=== PATIENT | male | born 1980 | race Caucasian/White ===

== ENCOUNTER 2017-01-06 10:55 | Inpatient (IN) | payer MEDICAID ==
[~2017-01-06] VITALS: Ht 182.9 cm; Wt 86.6 kg
[2017-01-06] MEDS ORDERED: ONDANSETRON (ODT) 4 MG TAB ODT STA (12:10)
[2017-01-06] MEDS ORDERED: KETOROLAC 30 MG INJ IV STA (12:10)
[2017-01-06] MEDS ORDERED: ONDANSETRON 4 MG INJ ONE (12:27)
[2017-01-06] MEDS ORDERED: KETOROLAC 30 MG INJ IM STA (12:27)
[2017-01-06 12:56] LABS: ADD SCAN DIFF NO
[2017-01-06 12:58] LABS: BASOPHILS % 0.3 % (0.0-2.0); EOSINOPHILS # 0.1 10^3/ul (0.0-0.5); EOSINOPHILS % 0.7 % (0.0-7.0); HEMATOCRIT 44.8 % (42.0-52.0); HEMOGLOBIN 15.2 g/dl (14.0-18.0); LYMPHOCYTES # 1.2 10^3/ul (0.8-2.9); LYMPHOCYTES % 12.3 % (15.0-51.0); MEAN CORPUSCULAR HEMOGLOBIN 31.5 pg (29.0-33.0); MEAN CORPUSCULAR HGB CONC 33.9 g/dl (32.0-37.0); MEAN CORPUSCULAR VOLUME 92.8 fl (82.0-101.0); MEAN PLATELET VOLUME 10.9 fl (7.4-10.4); MONOCYTE # 0.6 10^3/ul (0.3-0.9); MONOCYTES % 6.3 % (0.0-11.0); NEUTROPHIL # 7.5 10^3/ul (1.6-7.5); NEUTROPHILS % 80.1 % (39.0-77.0); PLATELET COUNT 286 10^3/UL (140-415); RED BLOOD COUNT 4.83 10^6/ul (4.70-6.10); WHITE BLOOD COUNT 9.3 10^3/ul (4.8-10.8)
[2017-01-06 13:03] LABS: ADD UMIC YES; URINE BILIRUBIN (Dip) 2+ (NEGATIVE); URINE BLOOD (Dip) TRACE (NEGATIVE); URINE COLOR DK. YELLOW (YELLOW); URINE GLUCOSE (Dip) NEGATIVE (NEGATIVE); URINE KETONES (Dip) TRACE (NEGATIVE); URINE LEUKOCYTE ESTERASE (Dip) NEGATIVE (NEGATIVE); URINE NITRITE (Dip) NEGATIVE (NEGATIVE); URINE TOTAL PROTEIN (Dip) NEGATIVE (NEGATIVE); URINE UROBILINOGEN (Dip) 1.0 E.U./dL (0.1-1.0)
[2017-01-06 13:07] LABS: ALBUMIN 4.8 g/dl (3.3-4.9); POTASSIUM 4.2 mmol/L (3.5-5.1)
[2017-01-06 13:09] LABS: CREATININE 0.95 mg/dl (0.61-1.24)
[2017-01-06 13:10] LABS: ALBUMIN/GLOBULIN RATIO 1.37; BILIRUBIN,DIRECT 0.3 mg/dl (0.00-0.20); BILIRUBIN,INDIRECT 0.7 mg/dl (0-1.1); CALCIUM 9.4 mg/dl (8.4-10.2); TOTAL PROTEIN 8.3 g/dl (6.1-8.1)
--- NOTE | 2017-01-06 13:15 | RADRPT ---
PROCEDURE: US Abdomen Right Upper Quadrant. CLINICAL INDICATION: Right upper quadrant and epigastric pain TECHNIQUE: Multiple real-time longitudinal and transverse images were acquired of the patient's [facility] upper quadrant abdomen utilizing a curved array transducer. COMPARISON: None FINDINGS: Liver: The liver is mildly enlarged of the sagittal diameter of the right lobe measuring 17.6 cm. T he liver is diffusely echogenic with no focal lesion identified. There is antegrade flow of the justin n portal vein. Gallbladder: There is cholelithiasis and some sludge within the gallbladder. The gallbladder wall i s not thickened. Bile ducts: There is no significant intra or extrahepatic bile duct dilatation. No choledocholiths a re seen within the visualized portions. The common bile duct measures 4.1 mm in cross diameter. Pancreas: The pancreas is largely obscured by bowel gas. Right adrenal : No mass is identified. Right kidney: Normal in echotexture andl in size. The right kidney measures 11.7 cm in length. No ma ss, pathological calcification, or hydronephrosis is evident. Peritoneum: There is no free intraperitoneal fluid IMPRESSION: 1. Cholelithiasis with some sludge seen in the gallbladder. The gallbladder wall is not thickened a nd no bile duct dilatation is evident. 2. The pancreas is largely obscured by bowel gas. 3. Hepatomegaly with diffusely increased echotexture compatible with fatty infiltration or less lik jeff diffuse hepatocellular disease. 4. Normal-appearing right kidney without hydronephrosis. Physician Garry Date Time Electronically viewed and signed by Physician Garry on 01/06/2017 13:14 /
[2017-01-06 13:17] LABS: ICTOTEST POSITIVE (NEGATIVE)
[2017-01-06 13:19] LABS: MUCUS,URINE MANY; SQUAMOUS EPITHELIAL CELL,UR FEW; URINE RBCS 0-2 /HPF (0)
[2017-01-06 14:23] VITALS: TEMP 98.6
[2017-01-06] MEDS ORDERED: FAMOTIDINE 20 MG INJ ONE (14:29)
[2017-01-06] MEDS ORDERED: FAMOTIDINE 20 MG TAB PO ONE (14:30)
[2017-01-06] MEDS ORDERED: ACETAMINOPHEN 325 MG TAB PO PRN ×2 (14:30→22:00)
[2017-01-06] MEDS ORDERED: ONDANSETRON 4 MG INJ IV PRN ×2 (14:30→16:00)
[2017-01-06] MEDS ORDERED: FAMOTIDINE 20 MG INJ IV ONE (15:00)
[2017-01-06] MEDS ORDERED: hydrALAzine 20 MG INJ IV PRN (16:00)
[2017-01-06] MEDS ORDERED: IBUPROFEN 600 MG TAB PO PRN (16:00)
[2017-01-06] MEDS ORDERED: BISACODYL (EC) 5 MG TAB PO PRN (16:00)
[2017-01-06] MEDS ORDERED: CEFTRIAXONE 1 GM/50 ML (PMX) 50 ML IVPB SCH (16:00)
[2017-01-06] MEDS ORDERED: NACL 0.9% 3 ML SYG IV SCH (16:00)
[2017-01-06] MEDS ORDERED: MAGNESIUM HYDROXIDE 30ML CUP PO PRN (16:00)
--- NOTE | 2017-01-06 16:49 | HP ---
DATE OF ADMISSION: 01/06/2017 REASON FOR ADMISSION: Abdominal pain. CONSULTANTS: Teo Maurice MD, general surgery. HISTORY OF PRESENT ILLNESS: This is 36-year-old male patient with a past medical history of dyslipidemia and recently diagnosed cholelithiasis, who came to the emergency room with chief complaint of abdominal pain and multiple episodes of nonbilious, nonbloody vomiting. As per the patient, he went to the ER at [facility] on 01/02/2017, when he had a CT scan done and he was told that he has gallstones. At that time, the patient was discharged home on some tramadol and Pepcid. The patient continued to have abdominal pain and worsening symptoms. Hence, the patient went to a local clinic on 01/06/2017 and the patient was referred to the ER for further evaluation. The patient complained of severe abdominal pain that was precipitated by food. The patient was also complaining of generalized icterus as well as pruritus. The patient also verbalized yellowish discoloration of the urine. The patient denied any diarrhea. The patient has not had any bowel movement for the past 2 days. The patient denied any fevers. He was complaining of headache and malaise. The patient verbalized that he has been taking gemfibrozil for his dyslipidemia. In the emergency room at [facility], the patient was found to be afebrile. The patient was noticed to have transaminitis with AST of 315 and ALT of 549 with a normal alkaline phosphatase and minimal direct bilirubinemia. The patient had no leukocytosis. The patient underwent a gallbladder ultrasound in the emergency room that showed cholelithiasis with some sludge seen in the gallbladder with no gallbladder wall thickening and no bile duct dilatation. The ultrasound also revealed hepatomegaly with diffusely increased echotexture compatible with fatty infiltration; however, less likely diffuse hepatocellular disease. The patient was treated with IV analgesics and IV histamine 2 receptor blockers in the emergency room. PAST MEDICAL HISTORY: Dyslipidemia, recently diagnosed cholelithiasis. PAST SURGICAL HISTORY: Denies. HOME MEDICATIONS: Fenofibrate, unknown dose daily. ALLERGIES: NO KNOWN DRUG ALLERGIES. SOCIAL HISTORY: The patient lives at home. Current daily tobacco use. Denies any use of alcohol or illicit drugs. REVIEW OF SYSTEMS: A 12-point review of systems was made and review of systems was negative other than what is mentioned in history of present illness. PHYSICAL EXAMINATION: VITAL SIGNS: Temperature 98.6, pulse rate 54, respiratory rate 17, blood pressure 147/97, oxygen saturation 100% on room air. HEENT: Head normocephalic and atraumatic. Eyes: Anicteric sclerae. Conjunctivae clear. ENT: Nasal septum is midline. Oral mucosa is dry. NECK: Supple. No JVD noticed. RESPIRATORY: Bilaterally clear to auscultation. No adventitious breath sounds heard. No use of accessory muscles of respiration. CARDIAC: Regular rate and rhythm. No murmurs heard. GASTROINTESTINAL: Abdomen soft, nontender. Bowel sounds hypoactive in all 4 quadrants. GENITOURINARY: Deferred. EXTREMITIES: No cyanosis, no clubbing, no edema. Peripheral pulses are palpable. NEUROLOGIC: The patient is awake, alert and oriented. Cranial nerves are grossly intact. LABORATORY AND DIAGNOSTIC DATA: WBC 9.3, hemoglobin 15.1, hematocrit 44.8, platelet count 286. Sodium 144, potassium 4.2, chloride 99, carbon dioxide 29, anion gap 20, BUN 14, creatinine 0.95, glucose 97, calcium 9.4. Total bilirubin 1.0, direct bilirubin 0.3, indirect bilirubin 0.7, AST 315, AST 569, alkaline phosphatase 124, albumin 4.8, lipase 40. Urinalysis: Urine nitrite negative, urine leukocyte esterase negative, urine bilirubin 2+, urine microscopic WBC 0 to 2. Gallbladder ultrasound. Cholelithiasis with some sludge in the gallbladder. The gallbladder wall is not thickened and no bile duct dilatation is evident. The pancreas was largely obscured by bowel gas. Hepatomegaly with diffuse increased echotexture compatible with fatty infiltration; however, less likely diffuse hepatocellular disease. Normal appearing right kidney without hydronephrosis. IMPRESSION: A 36-year-old male with recently diagnosed cholelithiasis, who came to the emergency room with symptomatic cholelithiasis with evidence of transaminitis. He will be admitted here for further treatment and evaluation. ASSESSMENT AND PLAN: 1. Symptomatic cholelithiasis. General surgery consult will be obtained. The patient will be provided with adequate pain control. The patient will be started on empiric antibiotics. The patient will be maintained on a clear liquid diet if the patient can tolerate it. 2. Dyslipidemia. Fasting lipid panel will be obtained. The patient was taking gemfibrozil at home. This will be put on hold at this time. 3. Transaminitis. Most probably secondary to #1. We will monitor the liver function tests closely. We will avoid any hepatotoxic medications 4. Tobacco use. The patient will be advised to quit the use of tobacco. The patient will be provided with a nicotine patch in case he develops any withdrawal from nicotine. Plan. The patient will be admitted to inpatient medical/surgical floor. The patient will be started on DVT prophylaxis and gastrointestinal prophylaxis. The patient will be started on a clear liquid diet. Activities will be as tolerated. The patient will remain a FULL CODE. The rest of the patient's management will be based on the clinical course, the results of diagnostic studies and inputs from the consultants. Based on the patient's clinical presentation, he most probably requires at least 2 midnights' stay for further management and evaluation of his clinical presentation. The case and management of this patient was fully discussed with Dr. Wisdom. ELFEGO WISDOM MD, AM/ALBERTO Conf#: [id number] DID#: [id number] MTDD
[2017-01-06 17:02] LABS: BARBITURATES NEGATIVE (NEGATIVE); BENZODIAZEPINES NEGATIVE (NEGATIVE); CANNABINOIDS NEGATIVE (NEGATIVE); COCAINE NEGATIVE (NEGATIVE); OPIATES NEGATIVE (NEGATIVE)
[2017-01-06 18:40] VITALS: BP 128/84; RESP 22
[2017-01-06] MEDS: DEXTROSE 5%-0.45% NACL 1,000 ML IV SCH ×3 (19:02→19:10)
[2017-01-06 19:45] VITALS: Ht 182.9 cm; Wt 86.6 kg
[2017-01-06 20:00] VITALS: BP 110/63; RESP 16
[2017-01-06] MEDS: FAMOTIDINE 20 MG INJ IV SCH (20:11)
[2017-01-07] MEDS: DEXTROSE 5%-0.45% NACL 1,000 ML IV SCH ×4 (01:39→15:26)
[2017-01-07 06:24] LABS: ADD SCAN DIFF NO
[2017-01-07 06:27] LABS: BASOPHILS % 0.4 % (0.0-2.0); EOSINOPHILS # 0.2 10^3/ul (0.0-0.5); EOSINOPHILS % 2.6 % (0.0-7.0); HEMATOCRIT 41.1 % (42.0-52.0); HEMOGLOBIN 13.8 g/dl (14.0-18.0); LYMPHOCYTES # 1.9 10^3/ul (0.8-2.9); LYMPHOCYTES % 27.6 % (15.0-51.0); MEAN CORPUSCULAR HEMOGLOBIN 31.2 pg (29.0-33.0); MEAN CORPUSCULAR HGB CONC 33.6 g/dl (32.0-37.0); MEAN PLATELET VOLUME 10.9 fl (7.4-10.4); MONOCYTE # 0.6 10^3/ul (0.3-0.9); MONOCYTES % 9.2 % (0.0-11.0); NEUTROPHIL # 4.1 10^3/ul (1.6-7.5); NEUTROPHILS % 59.9 % (39.0-77.0); PLATELET COUNT 240 10^3/UL (140-415); RED BLOOD COUNT 4.42 10^6/ul (4.70-6.10); WHITE BLOOD COUNT 6.8 10^3/ul (4.8-10.8)
[2017-01-07 06:37] LABS: INR 1.08; PT RATIO 1.1
[2017-01-07 06:38] LABS: PARTIAL THROMBOPLASTIN TIME 31.3 Sec (25.0-35.0)
[2017-01-07 06:45] LABS: POTASSIUM 4.8 mmol/L (3.5-5.1)
[2017-01-07 06:47] LABS: BILIRUBIN,DIRECT 0.2 mg/dl (0.00-0.20); BILIRUBIN,INDIRECT 0.6 mg/dl (0-1.1); BILIRUBIN,TOTAL 0.8 mg/dl (0.2-1.3)
[2017-01-07 06:48] LABS: ALBUMIN/GLOBULIN RATIO 1.37; CALCIUM 8.9 mg/dl (8.4-10.2); TOTAL PROTEIN 6.9 g/dl (6.1-8.1)
[2017-01-07 06:59] LABS: CREATININE 0.99 mg/dl (0.61-1.24)
[2017-01-07 07:03] LABS: PHOSPHORUS 3.7 mg/dl (2.5-4.9)
[2017-01-07 07:04] LABS: CHOL/HDL RATIO 3.3 RATIO; MAGNESIUM 1.8 mg/dl (1.7-2.5)
[2017-01-07 07:57] VITALS: BP 119/70; RESP 20
[2017-01-07] MEDS: FAMOTIDINE 20 MG INJ IV SCH ×3 (08:45→20:28)
--- NOTE | 2017-01-07 16:01 | PN ---
Date/Time of Note Date/Time of Note DATE: 01/07/17 TIME: 16:00 Assessment/Plan VTE Prophylaxis VTE Prophylaxis Intervention: SCD's Lines/Catheters IV Catheter Type (from Nrs): Peripheral IV Assessment/Plan Assessment/Plan 1. Symptomatic cholelithiasis. General surgery consult will be obtained. The patient will be provided with adequate pain control. The patient was started on empiric antibiotics. The patient will be maintained on a clear liquid diet if the patient can tolerate it. 2. Dyslipidemia. Fasting lipid panel will be obtained. The patient was taking gemfibrozil at home. This will be put on hold at this time. 3. Transaminitis. Most probably secondary to #1. We will monitor the liver function tests closely. We will avoid any hepatotoxic medications 4. Tobacco use. The patient will be advised to quit the use of tobacco. The patient will be provided with a nicotine patch in case he develops any withdrawal from nicotine. maalox, Pepcid, IVF, pain control Subjective 24 Hr Interval Summary Free Text/Dictation c/o epigastric pain after food, BP stable, c/o heartburn Exam/Review of Systems Vital Signs Vitals Vital Signs Date Time Temp Pulse Resp B/P Pulse Ox O2 Delivery O2 Flow Rate FiO2 01/07/17 07:57 97.9 62 20 119/70 0 01/06/17 14:23 Room Air Intake and Output 01/06/17 01/06/17 01/07/17 15:00 23:00 07:00 Intake Total 50 ml 1000 ml Balance 50 ml 1000 ml Exam HEENT: Head normocephalic and atraumatic. Eyes: Anicteric sclerae. Conjunctivae clear. ENT: Nasal septum is midline. Oral mucosa is dry. NECK: Supple. No JVD noticed. RESPIRATORY: Bilaterally clear to auscultation. No adventitious breath sounds heard. No use of accessory muscles of respiration. CARDIAC: Regular rate and rhythm. No murmurs heard. GASTROINTESTINAL: Abdomen soft, nontender. Bowel sounds hypoactive in all 4 quadrants. GENITOURINARY: Deferred. EXTREMITIES: No cyanosis, no clubbing, no edema. Peripheral pulses are palpable. NEUROLOGIC: The patient is awake, alert and oriented. Cranial nerves are grossly intact. Results Result Diagram: 01/07/17 0601/07/17 06 Results 24 hrs Laboratory Tests Test 3/22/17 06:04 White Blood Count 6.8 # Red Blood Count 4.42 L Hemoglobin 13.8 L Hematocrit 41.1 L Mean Corpuscular Volume 93.0 Mean Corpuscular Hemoglobin 31.2 Mean Corpuscular Hemoglobin Concent 33.6 Red Cell Distribution Width 13.0 Platelet Count 240 Mean Platelet Volume 10.9 H Neutrophils % 59.9 Lymphocytes % 27.6 Monocytes % 9.2 Eosinophils % 2.6 Basophils % 0.4 Nucleated Red Blood Cells % 0.0 Neutrophils # 4.1 Lymphocytes # 1.9 Monocytes # 0.6 Eosinophils # 0.2 Basophils # 0.0 Nucleated Red Blood Cells # 0.0 Prothrombin Time 14.0 Prothrombin Time Ratio 1.1 INR International Normalized Ratio 1.08 Activated Partial Thromboplast Time 31.3 Sodium Level 145 H Potassium Level 4.8 Chloride Level 104 Carbon Dioxide Level 30 Anion Gap 16 Blood Urea Nitrogen 12 Creatinine 0.99 Glucose Level 93 Calcium Level 8.9 Phosphorus Level 3.7 Magnesium Level 1.8 Total Bilirubin 0.8 Direct Bilirubin 0.20 Indirect Bilirubin 0.6 Aspartate Amino Transf (AST/SGOT) 179 H Alanine Aminotransferase (ALT/SGPT) 414 H Alkaline Phosphatase 108 Total Protein 6.9 # Albumin 4.0 Globulin 2.90 Albumin/Globulin Ratio 1.37 Triglycerides Level 201 H Cholesterol Level 157 LDL Cholesterol, Calculated 70 HDL Cholesterol 47 Cholesterol/HDL Ratio 3.3 Medications Medications Current Medications Dextrose/Sodium Chloride (D5-1/2ns) 1,000 ml @ 100 mls/hr Q10H IV Last administered on 01/07/17 15:26; Admin Dose 100 MLS/HR; Start 01/06/17 at 15:39 Ondansetron HCl (Zofran Inj) 4 mg Q6H PRN IV NAUSEA AND/OR VOMITING Last administered on 01/06/17 18:40; Admin Dose 4 MG; Start 01/06/17 at 16:00 Ibuprofen (Motrin) 600 mg Q6H PRN PO PAIN LEVEL 1-3 Last administered on 21:15; Admin Dose 600 MG; Start 01/06/17 at 16:00 Morphine Sulfate (morphine) 2 mg Q4H PRN IV SEVERE PAIN LEVEL 7-10; Start 01/06 at 16:00 Magnesium Hydroxide (Milk Of Mag) 30 ml DAILY PRN PO CONSTIPATION; Start at 16:00 Bisacodyl (Dulcolax) 5 mg DAILY PRN PO CONSTIPATION; Start 01/06/17 at 16:00 Famotidine (Pepcid Iv) 20 mg Q12 IV Last administered on 01/07/17t 15:24; Admin Dose 20 MG; Start 01/06/17 at 21:00 Hydralazine HCl (Apresoline) 10 mg Q6H PRN IV SBP>160; Start 01/06/17 at 16:00 Acetaminophen 650 mg 650 mg Q6H PRN PO PAIN AND OR ELEVATED TEMP; Start at 22:00 Ceftriaxone Sodium (Rocephin) 50 ml @ 100 mls/hr Q24H IVPB ; Start 01/07/17 at 20:00 Influenza Virus Vaccine (Fluzone) 0.5 ml ONCE ONCE IM* ; Start 01/08/17 at 09:00 ; Stop 01/08/17 at 09:01 RAMONITA SPAULDING MD Jan 07, 2017 16:01
[2017-01-07] MEDS ORDERED: AL HYDROX/MG HYDROX/SIMETH 30 ML CUP PO PRN (16:30)
[2017-01-07] MEDS ORDERED: AL HYDROX/MG HYDROX/SIMETH 30 ML CUP PO ONE (16:30)
[2017-01-07] MEDS: morphine 2 MG INJ IV PRN ×2 (16:56→22:16)
[2017-01-07 18:34] LABS: HAAIG REFLEX REFLEX FILED
--- NOTE | 2017-01-07 18:34 | CONS ---
[facility] INITIAL INPATIENT CONSULTATION NOTE PLACE OF SERVICE: [facility], 6th floor. DATE OF CONSULTATION: 01/07/2017 ASSESSMENT AND PLAN: A very pleasant and otherwise fairly healthy 36-year-old young man with comorbidity of hyperlipidemia and known cholelithiasis who is presenting with abdominal pain which could be from his gallbladder but could also be from gastritis. The history is significant for alleviation of all symptoms with proton pump inhibition. The other interesting factor is the description of jaundice and the fact that there is 2+ bilirubin in the urine indicating possible hepatitis. Overall, the patient can benefit from further workup including a gastroenterology evaluation and hepatitis testing. If the workup is negative, then I would recommend a laparoscopic cholecystectomy. I explained all of this to the patient and family in detail and answered all their questions to the best of my ability. I believe that the patient and family appeared to understand and agreed with the plan. With above assessment I recommended the followin. Consider gastroenterology consultation with consideration for upper endoscopy as well as evaluation of possible hepatitis. 2. Check hepatitis panels. 3. HIDA scan. 4. If above indicates it, then a laparoscopic cholecystectomy towards the end of this admission. Thank you again for allowing us to participate in the care of this very pleasant gentleman and his wonderful family. If there are any questions, please feel free to call me at [phone]. TOTAL VISIT TIME: 45 minutes of which more than half was spent in [id number] discussion with the patient, discussions with his family, as well as coordination of care between multiple physicians and providers. UPDATED CLINICAL SUMMARY: A very pleasant 36-year-old gentleman with comorbid issue of BMI 25.9 as well as dyslipidemia admitted through the emergency department at [facility] on 01/06/2017 for symptomatic biliary colic. COMORBIDITIES: 1. BMI 25.9. 2. Hyperlipidemia. 3. Cholelithiasis. 4. Gastritis. DATE OF ADMISSION: 01/06/2017 HISTORY OF PRESENT ILLNESS: The patient is a very pleasant 36-year-old gentleman whom we were kindly asked to consult regarding management of his possible biliary colic. This is his third hospital admission over the last 2 weeks. He was seen at [facility] on 01/02/2017 when a CAT scan was performed and he was told that he has cholelithiasis. He also describes a visit to [facility] where he was told he would need a cholecystectomy, but this would be done in many weeks. Interestingly, he also was treated with omeprazole a few months ago and he had complete resolution of his symptoms at that time. No other major previous issues with his biliary system. The patient and family describe a period in the last few days where he appeared to be jaundiced and had darkened urine. Currently no complaints after being medicated. ALLERGIES: NO KNOWN DRUG ALLERGIES. MEDICATIONS: Fenofibrate. SOCIAL HISTORY: The patient lives at home. He reports daily tobacco use and does not report any alcohol abuse or intravenous drug use. FAMILY HISTORY: No major medical, surgical or oncologic problems reported in the family. REVIEW OF SYSTEMS: Other than the above-mentioned, there are no other pertinent positives or pertinent negatives in the complete 14-point review of systems. PHYSICAL EXAMINATION: GENERAL: The patient appears to be a very pleasant gentleman of [place] descent appearing stated age, lying in bed comfortably and in no acute distress. BMI is 25.9. He is afebrile and his vital signs are stable. HEENT: Normocephalic and atraumatic. Extraocular muscles and hearing are grossly intact bilaterally and symmetrically. Sclerae are nonicteric. Oral cavity is clear; oral mucosa appeared to be pink and moist. Dentition: fair. NECK: Supple. There is no lymphadenopathy or JVD. There is no submental, submandibular or supraclavicular lymphadenopathy. CHEST: Rises symmetrically with each breath; patient is breathing comfortably. There are no audible wheezes, rales or rhonchi on the gross exam. HEART: Pulse is regular and palpable on the left wrist. Capillary refill was normal. Carotid pulses are palpable bilaterally and symmetrically in the neck. EXTREMITIES: Lower extremities contain no pitting edema around the ankles bilaterally and symmetrically. ABDOMEN: Abdomen is soft, nontender and nondistended. There are no peritoneal signs or guarding. No evidence of ascites, organomegaly, caput medusae, engorged subcutaneous veins, or other abnormalities. SKIN: Appears to be pink and feels warm to touch. NEUROLOGIC: Awake, alert, and follows commands appropriately. LABORATORY DATA: White blood cell count 6.8, hemoglobin 13.8, platelets 240. Electrolytes are fairly normal with sodium of 145. Creatinine 0.99. Bilirubin 0.8, AST 179, ALT 414, alkaline phosphatase 108, albumin 4.0, triglycerides 201. INR 1.08. Urine bilirubin was 2+, urine Ictotest was positive, leukocyte esterase was negative. Tox screen was negative. IMAGING: The patient had an ultrasound of the right upper quadrant that showed cholelithiasis with some sludge seen in the gallbladder but the gallbladder wall was not thickened and bile duct was not dilated. Hepatomegaly was noted with diffusely increased echotexture compatible with fatty infiltration or less likely diffuse hepatocellular disease. Note that I personally reviewed these images and I agree in general with their overall reported findings although the gallbladder wall to me appears to be slightly more thickened than normal. Dictated By: VERONICA SCHNEIDER/ALBERTO Conf#: [id number] DID#: [id number] MTDD
[2017-01-07 19:49] LABS: HEPATITIS B CORE ANTIBODY NEGATIVE (NEGATIVE)
[2017-01-07] MEDS: CEFTRIAXONE 1 GM/50 ML (PMX) 50 ML IVPB SCH (20:28)
[2017-01-07 20:53] VITALS: BP 135/79; RESP 18
[2017-01-08] MEDS: DEXTROSE 5%-0.45% NACL 1,000 ML IV SCH ×4 (01:17→16:39)
[2017-01-08 07:39] VITALS: BP 110/66; RESP 18
[2017-01-08] MEDS: FAMOTIDINE 20 MG INJ IV SCH ×2 (08:55→20:49)
[2017-01-08] MEDS ORDERED: INFLUENZA VIRUS VACCINE 0.5 ML (DISPENSING) IM* ONE (09:00)
--- NOTE | 2017-01-08 13:59 | RADRPT ---
PROCEDURE: HIDA scan CLINICAL INDICATION: 36 -year-old patient with abdominal pain. TECHNIQUE: Following the intravenous injection of 8.0 mCi of Tc-99m mebrofenin, multiple images of the abdomen were obtained up to 3.5 hours post injection. COMPARISON: No prior studies. FINDINGS: The liver is promptly visualized, demonstrates homogeneous distribution of radionuclide. Multiple images of the abdomen obtained up to 3.5 hours post injection demonstrate a persistent live r activity and no definite evidence of biliary clearance of uptake. IMPRESSION: Persistent liver activity and no definite evidence of biliary clearance of uptake up to 3.[address] injection. RPTAT: HH .Melissa Fisher MD, MD Date Time Electronically viewed and signed by .Melissa Fisher MD, on 01/08/2017 13:58 .L/
--- NOTE | 2017-01-08 15:17 | CONS ---
Date/Time of Note Date/Time of Note DATE: 01/08/17 TIME: 14:58 Assessment/Plan Assessment/Plan Additional Assessment/Plan Abdominal pain/nausea/vomiting Evaluate GI bleed versus PUD Stool OB, if positive strongly recommend EGD Monitor H&H every 8 hours, transfuse 2 units for hemoglobin less than 7.5 Continue PPI twice daily EGD if clinically indicated, pt advised of R/B/A to procedure and provide informed consent to proceed IVF Hydration Nausea and pain control Abdominal ultrasound: Transaminitis Likely secondary to cholecystitis Monitor LFTs Acute hepatitis panel, B and C negative. Hep A test in process Cholecystitis Surgery managing Possible IP cholecystectomy tomorrow Rule out choledocholithiasis, abdominal ultrasound negative for CBD dilation Lipase within normal limits High cholesterol Management per Primary Continue home medication Further recommendations depend on clinical course Patient seen in collaboration with Dr. Carlisle Consultation Date/Type/Reason Admit Date/Time Jan 06, 2017 at 14:23 Type of Consultation: Gastroenterology Reason for Consultation Abdominal pain Hx of Present Illness Mr.Ramin Jimenez is a 36-year-old male that presents with worsening abdominal pain, nausea, vomiting for last 2 weeks. Patient states prior to this episode he has been experiencing chronic abdominal pain with intermittent nausea and vomiting for several years. Patient states pain is worse after eating. Patient reports burning epigastric pain after eating and he uses over-the- counter Zantac for relief of symptoms. Patient denies fever, chills, travel outside the [place], sick contacts, alcohol use. Patient does have a past medical history of dyslipidemia that is treated with fenofibrate. Past Medical History Medical History: high cholesterol Past Surgical History Past Surgical Hx: no surgical history Family History Significant Family History: no pertinent family hx Social History Smoking Status: Current every day smoker Exam/Review of Systems Vital Signs Vitals Vital Signs Date Time Temp Pulse Resp B/P Pulse Ox O2 Delivery O2 Flow Rate FiO2 01/08/17 07:39 97.5 66 18 110/66 98 01/06/17 14:23 Room Air Intake and Output 01/07/17 01/07/17 01/08/17 15:00 23:00 07:00 Intake Total 2070 ml 1100 ml Balance 2070 ml 1100 ml Exam Constitutional: alert, oriented, well developed Psych: nl mood/affect Head: normocephalic Eyes: EOMI, nl conjunctiva, nl lids ENMT: nl external ears & nose, nl lips & teeth, nl nasal mucosa & septum Respiratory: clear to auscultation, normal air movement Cardiovascular: regular rate and rhythm Gastrointestinal: soft, epigastric tenderness Musculoskeletal: nl extremities to inspection 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 Results Result Diagram: 01/07/17 0604 01/07/17 0604 Results 24 hrs Laboratory Tests Test 01/07/17 18:25 Hepatitis B Surface Antigen NEGATIVE Hepatitis B Core Total Antibody NEGATIVE Hepatitis C Antibody NEGATIVE Medications Medications Current Medications Dextrose/Sodium Chloride (D5-1/2ns) 1,000 ml @ 100 mls/hr Q10H IV Last administered on 01/08/17 14:03; Admin Dose 100 MLS/HR; Start 01/06/17 at 15:39 Ondansetron HCl (Zofran Inj) 4 mg Q6H PRN IV NAUSEA AND/OR VOMITING Last administered on 01/06/17 18:40; Admin Dose 4 MG; Start 01/06/17 at 16:00 Ibuprofen (Motrin) 600 mg Q6H PRN PO PAIN LEVEL 1-3 Last administered on 21:15; Admin Dose 600 MG; Start 01/06/17 at 16:00 Morphine Sulfate (morphine) 2 mg Q4H PRN IV SEVERE PAIN LEVEL 7-10 Last administered on 01/07/17 22:16; Admin Dose 2 MG; Start 01/06/17 at 16:00 Magnesium Hydroxide (Milk Of Mag) 30 ml DAILY PRN PO CONSTIPATION; Start at 16:00 Bisacodyl (Dulcolax) 5 mg DAILY PRN PO CONSTIPATION; Start 01/06/17 at 16:00 Famotidine (Pepcid Iv) 20 mg Q12 IV Last administered on 01/08/17 08:55; Admin Dose 20 MG; Start 01/06/17 at 21:00 Hydralazine HCl (Apresoline) 10 mg Q6H PRN IV SBP>160; Start 01/06/17 at 16:00 Acetaminophen 650 mg 650 mg Q6H PRN PO PAIN AND OR ELEVATED TEMP; Start at 22:00 Ceftriaxone Sodium (Rocephin) 50 ml @ 100 mls/hr Q24H IVPB Last administered on 3/22/17at 20:28; Admin Dose 100 MLS/HR; Start 01/07/17 at 20:00 Al Hydrox/Mg Hydrox/Simethicone (Mag-Al Plus) 30 ml Q4H PRN PO GASTROINTESTINAL UPSET; Start 01/07/17 at 16:30 ROSARIO MACIAS Jan 08, 2017 15:08
[2017-01-08 16:40] LABS: ALANINE AMINOTRANSFERASE 717 IU/L (13-69); ASPARTATE AMINO TRANSFERASE 516 IU/L (15-46)
--- NOTE | 2017-01-08 18:48 | PN ---
Date/Time of Note Date/Time of Note DATE: 01/08/17 TIME: 18:46 Assessment/Plan VTE Prophylaxis VTE Prophylaxis Intervention: SCD's Lines/Catheters IV Catheter Type (from Nrsg): Peripheral IV Urinary Cath still in place: No Assessment/Plan Assessment/Plan 1. Symptomatic cholelithiasis. s/p general surgery consult, GI consulted for EGD 2. Dyslipidemia. 3. Transaminitis acute 4. Tobacco use. counselled for smoking cessation maalox, Pepcid, IVF, pain control, SCD for DVT prophylaxis Subjective 24 Hr Interval Summary Free Text/Dictation LFTs still high,c/o abd pain, GI consulted to see pt Exam/Review of Systems Vital Signs Vitals Vital Signs Date Time Temp Pulse Resp B/P Pulse Ox O2 Delivery O2 Flow Rate FiO2 01/08/17 07:39 97.5 66 18 110/66 98 01/06/17 14:23 Room Air Intake and Output 01/07/17 01/07/17 01/08/17 15:00 23:00 07:00 Intake Total 2070 ml 1100 ml Balance 2070 ml 1100 ml Results Result Diagram: 01/07/17 0604 01/07/17 0604 Results 24 hrs Laboratory Tests Test 01/08/17 15:45 Aspartate Amino Transf (AST/SGOT) 516 #H Alanine Aminotransferase (ALT/SGPT) 717 H Medications Medications Current Medications Dextrose/Sodium Chloride (D5-1/2ns) 1,000 ml @ 100 mls/hr Q10H IV Last administered on 01/08/17 14:03; Admin Dose 100 MLS/HR; Start 01/06/17 at 15:39 Ondansetron HCl (Zofran Inj) 4 mg Q6H PRN IV NAUSEA AND/OR VOMITING Last administered on 01/06/17 18:40; Admin Dose 4 MG; Start 01/06/17 at 16:00 Ibuprofen (Motrin) 600 mg Q6H PRN PO PAIN LEVEL 1-3 Last administered on 21:15; Admin Dose 600 MG; Start 01/06/17 at 16:00 Morphine Sulfate (morphine) 2 mg Q4H PRN IV SEVERE PAIN LEVEL 7-10 Last administered on 01/07/17 22:16; Admin Dose 2 MG; Start 01/06/17 at 16:00 Magnesium Hydroxide (Milk Of Mag) 30 ml DAILY PRN PO CONSTIPATION; Start at 16:00 Bisacodyl (Dulcolax) 5 mg DAILY PRN PO CONSTIPATION; Start 01/06/17 at 16:00 Famotidine (Pepcid Iv) 20 mg Q12 IV Last administered on 01/08/17 08:55; Admin Dose 20 MG; Start 01/06/17 at 21:00 Hydralazine HCl (Apresoline) 10 mg Q6H PRN IV SBP>160; Start 01/06/17 at 16:00 Acetaminophen 650 mg 650 mg Q6H PRN PO PAIN AND OR ELEVATED TEMP; Start at 22:00 Ceftriaxone Sodium (Rocephin) 50 ml @ 100 mls/hr Q24H IVPB Last administered on 01/07/17 20:28; Admin Dose 100 MLS/HR; Start 01/07/17 at 20:00 Al Hydrox/Mg Hydrox/Simethicone (Mag-Al Plus) 30 ml Q4H PRN PO GASTROINTESTINAL UPSET; Start 01/07/17 at 16:30 RAMONITA SPAULDING MD Jan 08, 2017 18:48
[2017-01-08 20:22] VITALS: BP 130/68; RESP 16
[2017-01-08] MEDS: CEFTRIAXONE 1 GM/50 ML (PMX) 50 ML IVPB SCH (20:49)
--- NOTE | 2017-01-08 23:05 | RADRPT ---
PROCEDURE: MRCP. CLINICAL INDICATION: Biliary colic. Elevated liver function tests. Evaluate for choledocholithia sis. TECHNIQUE: MRCP was performed on a high field MRI scanner. Patient was examined without contrast. 3-D coronal rotating MIP images of the biliary tree are available for review. COMPARISON: HIDA 01/08/2017. Gallbladder ultrasound 01/06/2017. FINDINGS: The gallbladder is not distended. Stones layer dependently within the gallbladder lumen. There is no gallbladder wall thickening or pericholecystic edema. The common bile duct measures approximatel y 6-7 mm in greatest diameter. There are no discrete internal signal voids to suggest the presence of choledocholithiasis. There is no pancreatic duct dilatation. The liver is homogeneous in signal intensity and measures approximately 19.0 cm in a craniocaudal di mension. The spleen is homogeneous in signal intensity and measures approximately 10.0 cm in a cran iocaudal dimension. The pancreas is homogeneous in signal intensity. There is no peripancreatic ed [place]. The adrenal glands and kidneys are unremarkable. There is no hydronephrosis or perinephric edema. The abdominal aorta is normal in caliber. There is no periaortic / retroperitoneal lymphadenopathy. The stomach is collapsed. The visualized portions of the small large intestines are unremarkable. There are no bone marrow signal abnormalities. Body wall soft tissues are unremarkable. IMPRESSION: Cholelithiasis without evidence of acute cholecystitis. Minimal mild common bile duct dilatation without evidence of choledocholithiasis. Hepatomegaly. RPTAT: HLST .Faye Wolfe MD, Date Time Electronically viewed and signed by .Faye Wolfe MD, on 01/08/2017 23:05 .T/
[2017-01-09] MEDS: DEXTROSE 5%-0.45% NACL 1,000 ML IV SCH ×2 (02:44→13:10)
[2017-01-09 05:29] LABS: ADD SCAN DIFF NO
[2017-01-09 05:45] LABS: BASOPHILS % 0.4 % (0.0-2.0); EOSINOPHILS # 0.3 10^3/ul (0.0-0.5); EOSINOPHILS % 3.6 % (0.0-7.0); HEMATOCRIT 39.5 % (42.0-52.0); HEMOGLOBIN 13.6 g/dl (14.0-18.0); MEAN CORPUSCULAR HEMOGLOBIN 31.6 pg (29.0-33.0); MEAN CORPUSCULAR HGB CONC 34.4 g/dl (32.0-37.0); MEAN CORPUSCULAR VOLUME 91.9 fl (82.0-101.0); MEAN PLATELET VOLUME 11.3 fl (7.4-10.4); MONOCYTE # 0.7 10^3/ul (0.3-0.9); MONOCYTES % 10.1 % (0.0-11.0); NEUTROPHIL # 3.9 10^3/ul (1.6-7.5); NEUTROPHILS % 56.6 % (39.0-77.0); PLATELET COUNT 238 10^3/UL (140-415); RED CELL DISTRIBUTION WIDTH 12.9 % (11.5-14.5); WHITE BLOOD COUNT 6.9 10^3/ul (4.8-10.8)
[2017-01-09 05:57] LABS: INR 1.01; PROTIME 13.3 Sec (12.2-14.2)
[2017-01-09 05:58] LABS: PARTIAL THROMBOPLASTIN TIME 31.5 Sec (25.0-35.0)
[2017-01-09 06:12] LABS: ALBUMIN 3.9 g/dl (3.3-4.9)
[2017-01-09 06:13] LABS: POTASSIUM 3.9 mmol/L (3.5-5.1)
[2017-01-09 06:15] LABS: ALBUMIN/GLOBULIN RATIO 1.44; BILIRUBIN,INDIRECT 0.7 mg/dl (0-1.1); BILIRUBIN,TOTAL 0.7 mg/dl (0.2-1.3); CREATININE 0.91 mg/dl (0.61-1.24); TOTAL PROTEIN 6.6 g/dl (6.1-8.1)
[2017-01-09 06:16] LABS: CALCIUM 9.2 mg/dl (8.4-10.2)
[2017-01-09] MEDS ORDERED: CEFAZOLIN 1 GM INJ ONE (07:00)
[2017-01-09] MEDS ORDERED: GLYCOPYRROLATE 1 MG INJ ONE (07:00)
[2017-01-09] MEDS ORDERED: NEOSTIGMINE 3 MG/3 ML SYRINGE ONE (07:00)
[2017-01-09 08:13] VITALS: BP 111/78; RESP 18
[2017-01-09] MEDS: FAMOTIDINE 20 MG INJ IV SCH ×2 (08:50→21:08)
--- NOTE | 2017-01-09 12:31 | PN ---
Date/Time of Note Date/Time of Note DATE: 01/09/17 TIME: 12:29 Assessment/Plan VTE Prophylaxis VTE Prophylaxis Intervention: SCD's Lines/Catheters IV C[facility]ter Type (from [facility]): Peripheral IV Urinary Cath still in place: No Assessment/Plan Assessment/Plan 1. Symptomatic cholelithiasis. s/p general surgery consult, GI consulted for EGD 2. Dyslipidemia. 3. Transaminitis acute 4. Tobacco use. counselled for smoking cessation maalox, Pepcid, IVF, pain control, SCD for DVT prophylaxis MRI showed minimally dilated CBD, no evidence of cholecystitis Subjective 24 Hr Interval Summary Free Text/Dictation pt has a MRI showed minimally dilated CBD, Exam/Review of Systems Vital Signs Vitals Vital Signs Date Time Temp Pulse Resp B/P Pulse Ox O2 Delivery O2 Flow Rate FiO2 01/09/17 08:13 97.6 63 18 111/78 99 01/06/17 14:23 Room Air Intake and Output 01/08/17 01/08/17 01/09/17 15:00 23:00 07:00 Intake Total 1600 ml 1430 ml 900 ml Balance 1600 ml 1430 ml 900 ml Exam HEENT: Head normocephalic and atraumatic. Eyes: Anicteric sclerae. Conjunctivae clear. ENT: Nasal septum is midline. Oral mucosa is dry. NECK: Supple. No JVD noticed. RESPIRATORY: Bilaterally clear to auscultation. No adventitious breath sounds heard. No use of accessory muscles of respiration. CARDIAC: Regular rate and rhythm. No murmurs heard. GASTROINTESTINAL: Abdomen soft, nontender. Bowel sounds hypoactive in all 4 quadrants. GENITOURINARY: Deferred. EXTREMITIES: No cyanosis, no clubbing, no edema. Peripheral pulses are palpable. NEUROLOGIC: The patient is awake, alert and oriented. Cranial nerves are grossly intact. Results Result Diagram: 01/09/17 0450 01/09/17 0450 Results 24 hrs Laboratory Tests Test 01/08/17 15:45 01/09/17 04:50 Aspartate Amino Transf (AST/SGOT) 516 #H 199 #H Alanine Aminotransferase (ALT/SGPT) 717 H 558 H White Blood Count 6.9 Red Blood Count 4.30 L Hemoglobin 13.6 L Hematocrit 39.5 L Mean Corpuscular Volume 91.9 Mean Corpuscular Hemoglobin 31.6 Mean Corpuscular Hemoglobin Concent 34.4 Red Cell Distribution Width 12.9 Platelet Count 238 Mean Platelet Volume 11.3 H Neutrophils % 56.6 Lymphocytes % 29.0 Monocytes % 10.1 Eosinophils % 3.6 Basophils % 0.4 Nucleated Red Blood Cells % 0.0 Neutrophils # 3.9 Lymphocytes # 2.0 Monocytes # 0.7 Eosinophils # 0.3 Basophils # 0.0 Nucleated Red Blood Cells # 0.0 Prothrombin Time 13.3 Prothrombin Time Ratio 1.0 INR International Normalized Ratio 1.01 Activated Partial Thromboplast Time 31.5 Sodium Level 145 H Potassium Level 3.9 Chloride Level 105 Carbon Dioxide Level 28 Anion Gap 16 Blood Urea Nitrogen 10 Creatinine 0.91 Glucose Level 106 Calcium Level 9.2 Total Bilirubin 0.7 Direct Bilirubin 0.00 # Indirect Bilirubin 0.7 Alkaline Phosphatase 137 H Total Protein 6.6 Albumin 3.9 Globulin 2.70 Albumin/Globulin Ratio 1.44 Medications Medications Current Medications Dextrose/Sodium Chloride (D5-1/2ns) 1,000 ml @ 100 mls/hr Q10H IV Last administered on 01/09/17 02:44; Admin Dose 100 MLS/HR; Start 01/06/17 at 15:39 Ondansetron HCl (Zofran Inj) 4 mg Q6H PRN IV NAUSEA AND/OR VOMITING Last administered on 01/06/17 18:40; Admin Dose 4 MG; Start 01/06/17 at 16:00 Ibuprofen (Motrin) 600 mg Q6H PRN PO PAIN LEVEL 1-3 Last administered on 21:15; Admin Dose 600 MG; Start 01/06/17 at 16:00 Morphine Sulfate (morphine) 2 mg Q4H PRN IV SEVERE PAIN LEVEL 7-10 Last administered on 01/07/17 22:16; Admin Dose 2 MG; Start 01/06/17 at 16:00 Magnesium Hydroxide (Milk Of Mag) 30 ml DAILY PRN PO CONSTIPATION; Start at 16:00 Bisacodyl (Dulcolax) 5 mg DAILY PRN PO CONSTIPATION; Start 01/06/17 at 16:00 Famotidine (Pepcid Iv) 20 mg Q12 IV Last administered on 01/09/17 08:50; Admin Dose 20 MG; Start 01/06/17 at 21:00 Hydralazine HCl (Apresoline) 10 mg Q6H PRN IV SBP>160; Start 01/06/17 at 16:00 Acetaminophen 650 mg 650 mg Q6H PRN PO PAIN AND OR ELEVATED TEMP; Start at 22:00 Ceftriaxone Sodium (Rocephin) 50 ml @ 100 mls/hr Q24H IVPB Last administered on 01/08/17t 20:49; Admin Dose 100 MLS/HR; Start 01/07/17 at 20:00 Al Hydrox/Mg Hydrox/Simethicone (Mag-Al Plus) 30 ml Q4H PRN PO GASTROINTESTINAL UPSET; Start 01/07/17 at 16:30 RAMONITA SPAULDING MD Jan 09, 2017 12:31
--- NOTE | 2017-01-09 17:14 | PN ---
Date/Time of Note Date/Time of Note DATE: 01/08/17 TIME: 10:10 Assessment/Plan Lines/Catheters IV Catheter Type (from Nrs): Peripheral IV Richard in Place (from Nrs): No Assessment/Plan Assessment/Plan [facility] Progress Note (late entry) Date of Service: 01/08/17 Today's Impression & Plan: Overall stable with elevated transaminases. Awaiting HIDA scan. Hep B & C neg; hep A pending; appreciate Dr. Carlisle's input. No indication for acute surgical intervention and likely will need lap torsten at the end of this admission. With above assessment, I've recommended the following for today: 1. F/u on Hep A studies 2. F/u on HIDA scan 3. Further plans after above Thank you again for your great care of this very pleasant patient and wonderful family. If there are any questions, please feel free to call me at [phone]. TOTAL VISIT TIME: 20 minutes of which more than half was spent in [id number] discussion with the patient, possibly including family, as well as coordination of care between multiple physicians and providers. Disclaimer: Inadvertent spelling or grammatical errors are likely due to EHR/ dictation software use and do not reflect on the overall quality of patient care. Updated Clinical Summary: A very pleasant 36-year-old gentleman with comorbid issue of BMI 25.9 as well as dyslipidemia admitted through the emergency department at [facility] on 01/06/2017 for symptomatic biliary colic. Elevated transaminases. COMORBIDITIES: 1. BMI 25.9. 2. Hyperlipidemia. 3. Cholelithiasis. 4. Gastritis. Subjective: No major events or complaints overnight; no major abd pain and under control with medications; no n/v/d; no sob or cp; + flatus; + BM; + activity Objective: Vitals: See below Exam: GENERAL: On exam, the patient was sitting up in his bed and appeared to be comfortable and in no acute distress. ABDOMEN: Soft, nontender and nondistended. There are no peritoneal signs or guarding. SKIN: Skin appears to be pink and feels warm to touch. NEUROLOGIC: Patient is awake, alert, and follows commands appropriately. Exam/Review of Systems Vital Signs Vitals Vital Signs Date Time Temp Pulse Resp B/P Pulse Ox O2 Delivery O2 Flow Rate FiO2 01/09/17 08:13 97.6 63 18 111/78 99 01/06/17 14:23 Room Air Intake and Output 01/08/17 01/08/17 01/09/17 15:00 23:00 07:00 Intake Total 1600 ml 1430 ml 900 ml Balance 1600 ml 1430 ml 900 ml Results Result Diagram: 01/09/17 0450 01/09/17 0450 VERONICA BIGGS M.D. Jan 09, 2017 17:14
--- NOTE | 2017-01-09 17:36 | PN ---
Date/Time of Note Date/Time of Note DATE: 01/09/17 TIME: 17:14 Assessment/Plan Lines/Catheters IV Catheter Type (from [facility]): Peripheral IV Richard in Place (from [facility]): No Assessment/Plan Assessment/Plan [facility] Progress Note Date of Service: 01/09/17 Today's Impression & Plan: Overall stable with elevated transaminases and now with elevated alk phos and HIDA scan showing lack of CBD or gallbladder visualization (? hepatitis vs CBD obstruction or both). Clinically remains stable. Awaiting hep A results; appreciate Dr. Carlisle's input and left a message to discuss. Awaiting EGD with possible ERCP by Dr. Carlisle. No indication for acute surgical intervention and likely will need lap torsten at the end of this admission. Please note that today I spent an extra 20 min at bedside explaining and clarifying clinical picture to patient and his significant other. In my opinion, patient and family have somewhat unrealistic expectations regarding their medical care. I did my best to explain to them the complexity of his medical condition, the changing picture of his clinical information and the expected timeline of getting those issues resolved. I answered all of their questions with help of diagrams as well as careful review of his RUQ US, HIDA scan as well as MRCP images with explanation of findings. I'm hopeful they will understand and have more realistic expectations of their medical team. With above assessment, I've recommended the following for today: 1. F/u on Hep A studies 2. Consider EGD with possible ERCP by Dr. Carlisle (I believe scheduled for today) 3. Lap torsten after above and if not contraindicated by acute hep A or endoscopy findings Thank you again for your great care of this very pleasant patient and wonderful family. If there are any questions, please feel free to call me at [phone]. TOTAL VISIT TIME: 20 minutes of which more than half was spent in [id number] discussion with the patient, possibly including family, as well as coordination of care between multiple physicians and providers. Disclaimer: Inadvertent spelling or grammatical errors are likely due to EHR/ dictation software use and do not reflect on the overall quality of patient care. Updated Clinical Summary: A very pleasant 36-year-old gentleman with comorbid issue of BMI 25.9 as well as dyslipidemia admitted through the emergency department at [facility] on 01/06/2017 for symptomatic biliary colic. Elevated transaminases. HIDA scan 01/08/17 showed no CBD or GB visualization. COMORBIDITIES: 1. BMI 25.9. 2. Hyperlipidemia. 3. Cholelithiasis. 4. Gastritis. Subjective: No major events or complaints overnight; no major abd pain and under control with medications; no n/v/d; no sob or cp; + flatus; + BM; + activity; very upset at medical team and their perceived efficiency. Objective: Vitals: See below Exam: GENERAL: On exam, the patient was sitting up in his bed and appeared to be comfortable and in no acute distress. ABDOMEN: Soft, nontender and nondistended. There are no peritoneal signs or guarding. SKIN: Skin appears to be pink and feels warm to touch. NEUROLOGIC: Patient is awake, alert, and follows commands appropriately. Exam/Review of Systems Vital Signs Vitals Vital Signs Date Time Temp Pulse Resp B/P Pulse Ox O2 Delivery O2 Flow Rate FiO2 01/09/17 08:13 97.6 63 18 111/78 99 01/06/17 14:23 Room Air Intake and Output 01/08/17 01/08/17 01/09/17 15:00 23:00 07:00 Intake Total 1600 ml 1430 ml 900 ml Balance 1600 ml 1430 ml 900 ml Results Result Diagram: 01/09/17 0450 01/09/17 0450 VERONICA BIGGS M.D. Jan 09, 2017 17:25
[2017-01-09] MEDS ORDERED: INDOMETHACIN 50 MG SUPP PR ONE (18:00)
[2017-01-09] MEDS ORDERED: IOHEXOL 300MG/ML 30 ML BTL ONE ×2 (18:47→18:50)
[2017-01-09] MEDS ORDERED: ONDANSETRON 4 MG INJ ONE (19:25)
[2017-01-09] MEDS ORDERED: DEXAMETHASONE 4 MG/ML 1 ML INJ ONE (19:25)
[2017-01-09] MEDS ORDERED: ROCURONIUM 50 MG INJ ONE (19:25)
[2017-01-09] MEDS ORDERED: PROPOFOL 20 ML ONE ×2 (19:25→20:51)
[2017-01-09] MEDS ORDERED: SUCCINYLCHOLINE CHLORIDE 100 MG/5 ML SYG IV ONE (19:25)
[2017-01-09] MEDS ORDERED: FENTAnyl 50 MCG/ML VIAL ONE (19:25)
[2017-01-09] MEDS ORDERED: MIDAZOLAM 1 MG/ML 2 ML INJ ONE (19:25)
--- NOTE | 2017-01-09 19:25 | HPN ---
Date/Time of Note Date/Time of Note DATE: 01/09/17 TIME: 19:24 Interval H&P Admission Note Pt. seen H&P reviewed: No system changes SHAMEKA PRIEST MD Jan 09, 2017 19:25
[2017-01-09 20:16] VITALS: BP 135/83; PULSE 70; RESP 14
[2017-01-09 20:21] VITALS: BP 138/86; PULSE 62; RESP 14
[2017-01-09 20:26] VITALS: BP 133/88; PULSE 60; RESP 14
[2017-01-09 20:31] VITALS: BP 140/90; PULSE 56; RESP 14
[2017-01-09] MEDS: CEFTRIAXONE 1 GM/50 ML (PMX) 50 ML IVPB SCH (21:08)
[2017-01-10] VITALS (14 sets, daily range): BP systolic 105–138; BP diastolic 65–85; PULSE 60–73; RESP 15–18
[2017-01-10] MEDS: DEXTROSE 5%-0.45% NACL 1,000 ML IV SCH ×3 (03:27→13:20)
--- NOTE | 2017-01-10 08:55 | RADRPT ---
PROCEDURE: ERCP. CLINICAL INDICATION: Evaluate for retained stone. TECHNIQUE: 4 digital images were obtained of the right upper quadrant. COMPARISON: Abdominal sonogram 01/06/2017. FINDINGS: Panendoscope is in place with its distal tip in the duodenum. Contrast fills the biliary tree. A b alloon is inflated in the common hepatic duct and withdrawn into the distal common bile duct. No fi nal imaging demonstrating free flow contrast in the duodenum was performed. Fluoro time: 21.1-seconds. IMPRESSION: 1. Fluoro time: 21.1 mGy: 1.76 2. No evidence for retained stone. RPTAT:AAJJ Physician Jeannine Date Time Electronically viewed and signed by Physician Jeannine on 01/10/2017 08:55 /
[2017-01-10] MEDS: FAMOTIDINE 20 MG INJ IV SCH (09:04)
--- NOTE | 2017-01-10 10:06 | CONS ---
Date/Time of Note Date/Time of Note DATE: 01/10/17 TIME: 10:03 Assessment/Plan Assessment/Plan Chief Complaint/Hosp Course Mr.Ramin Jimenez is a 36-year-old male that presents with worsening abdominal pain, nausea, vomiting for last 2 weeks. Patient states prior to this episode he has been experiencing chronic abdominal pain with intermittent nausea and vomiting for several years. Patient states pain is worse after eating. Patient reports burning epigastric pain after eating and he uses over-the- counter Zantac for relief of symptoms. Patient denies fever, chills, travel outside the [place], sick contacts, alcohol use. Patient does have a past medical history of dyslipidemia that is treated with fenofibrate. Problems: Additional Assessment/Plan Abdominal pain/nausea/vomiting Evaluate GI bleed versus PUD Monitor H&H every 8 hours, transfuse 2 units for hemoglobin less than 7.5 Continue PPI twice daily Status post ERCP: Gastritis. Normal cholangiogram. Nausea and pain control Continue PPI twice daily Abdominal ultrasound: Transaminitis Likely secondary to cholecystitis Monitor LFTs Acute hepatitis panel, hep A, B, C negative Cholecystitis Surgery managing Cholecystectomy today Rule out choledocholithiasis, abdominal ultrasound negative for CBD dilation Lipase within normal limits High cholesterol Management per Primary Continue home medication Further recommendations depend on clinical course Patient seen in collaboration with Dr. Carlisle Consultation Date/Type/Reason Admit Date/Time Jan 06, 2017 at 14:23 Initial Consult Date Type of Consultation: Gastroenterology 24 HR Interval Summary Free Text/Dictation Status post ERCP, advised patient and partner of results Cholecystectomy planned today Exam/Review of Systems Vital Signs Vitals Vital Signs Date Time Temp Pulse Resp B/P Pulse Ox O2 Delivery O2 Flow Rate FiO2 01/10/17 07:35 97.6 84 16 105/65 98 01/09/17 20:31 Room Air Intake and Output 01/09/17 01/09/17 01/10/17 15:00 23:00 07:00 Intake Total 500 ml 600 ml 450 ml Balance 500 ml 600 ml 450 ml Exam Constitutional: alert, oriented, well developed Psych: nl mood/affect Head: normocephalic Eyes: EOMI, nl conjunctiva, nl lids ENMT: nl external ears & nose, nl lips & teeth, nl nasal mucosa & septum Respiratory: clear to auscultation, normal air movement Cardiovascular: regular rate and rhythm Gastrointestinal: soft, epigastric tenderness Musculoskeletal: nl extremities to inspection Neurological: F[employer]ING [employer] II-XII intact Results Result Diagram: 01/09/1744901/09/17 045 Medications Medications Current Medications Dextrose/Sodium Chloride (D5-1/2ns) 1,000 ml @ 100 mls/hr Q10H IV Last administered on 01/10/17 03:27; Admin Dose 100 MLS/HR; Start 01/06/17 at 15:39 Ondansetron HCl (Zofran Inj) 4 mg Q6H PRN IV NAUSEA AND/OR VOMITING Last administered on 01/06/17 18:40; Admin Dose 4 MG; Start 01/06/17 at 16:00 Ibuprofen (Motrin) 600 mg Q6H PRN PO PAIN LEVEL 1-3 Last administered on 21:15; Admin Dose 600 MG; Start 01/06/17 at 16:00 Morphine Sulfate (morphine) 2 mg Q4H PRN IV SEVERE PAIN LEVEL 7-10 Last administered on 01/07/17 22:16; Admin Dose 2 MG; Start 01/06/17 at 16:00 Magnesium Hydroxide (Milk Of Mag) 30 ml DAILY PRN PO CONSTIPATION; Start at 16:00 Bisacodyl (Dulcolax) 5 mg DAILY PRN PO CONSTIPATION; Start 01/06/17 at 16:00 Famotidine (Pepcid Iv) 20 mg Q12 IV Last administered on 01/10/17 09:04; Admin Dose 20 MG; Start 01/06/17 at 21:00 Hydralazine HCl (Apresoline) 10 mg Q6H PRN IV SBP>160; Start 01/06/17 at 16:00 Acetaminophen 650 mg 650 mg Q6H PRN PO PAIN AND OR ELEVATED TEMP; Start at 22:00 Ceftriaxone Sodium (Rocephin) 50 ml @ 100 mls/hr Q24H IVPB Last administered on 01/09/17 21:08; Admin Dose 100 MLS/HR; Start 01/07/17 at 20:00 Al Hydrox/Mg Hydrox/Simethicone (Mag-Al Plus) 30 ml Q4H PRN PO GASTROINTESTINAL UPSET; Start 01/07/17 at 16:30 ROSARIO MACIAS Jan 10, 2017 10:06
--- NOTE | 2017-01-10 13:32 | PN ---
Date/Time of Note Date/Time of Note DATE: 01/10/17 TIME: 13:30 Assessment/Plan VTE Prophylaxis VTE Prophylaxis Intervention: SCD's Lines/Catheters IV Catheter Type (from Nrsg): Peripheral IV Urinary Cath still in place: No Assessment/Plan Assessment/Plan 1. Symptomatic cholelithiasis. s/p general surgery consult, s/p ERCP by GI, now General surgery to decide for Lap torsten,Hepatitis A and other hepatitis panel negative 2. Dyslipidemia. 3. Transaminitis acute 4. Tobacco use. counselled for smoking cessation maalox, Pepcid, IVF, pain control, SCD for DVT prophylaxis MRI showed minimally dilated CBD, no evidence of cholecystitis s/p ERCP Now G surg to decide for lap torsten Subjective 24 Hr Interval Summary Free Text/Dictation s/p ERCP , C/o pain Exam/Review of Systems Vital Signs Vitals Vital Signs Date Time Temp Pulse Resp B/P Pulse Ox O2 Delivery O2 Flow Rate FiO2 01/10/17 07:35 97.6 84 16 105/65 98 01/09/17 20:31 Room Air Intake and Output 01/09/17 01/09/17 01/10/17 15:00 23:00 07:00 Intake Total 500 ml 600 ml 450 ml Balance 500 ml 600 ml 450 ml Results Result Diagram: 01/09/17 0450 01/09/17 0450 Medications Medications Current Medications Dextrose/Sodium Chloride (D5-1/2ns) 1,000 ml @ 100 mls/hr Q10H IV Last administered on 01/10/17 13:20; Admin Dose 100 MLS/HR; Start 01/06/17 at 15:39 Ondansetron HCl (Zofran Inj) 4 mg Q6H PRN IV NAUSEA AND/OR VOMITING Last administered on 01/06/17 18:40; Admin Dose 4 MG; Start 01/06/17 at 16:00 Ibuprofen (Motrin) 600 mg Q6H PRN PO PAIN LEVEL 1-3 Last administered on 21:15; Admin Dose 600 MG; Start 01/06/17 at 16:00 Morphine Sulfate (morphine) 2 mg Q4H PRN IV SEVERE PAIN LEVEL 7-10 Last administered on 01/07/17 22:16; Admin Dose 2 MG; Start 01/06/17 at 16:00 Magnesium Hydroxide (Milk Of Mag) 30 ml DAILY PRN PO CONSTIPATION; Start at 16:00 Bisacodyl (Dulcolax) 5 mg DAILY PRN PO CONSTIPATION; Start 01/06/17 at 16:00 Famotidine (Pepcid Iv) 20 mg Q12 IV Last administered on 01/10/17 09:04; Admin Dose 20 MG; Start 01/06/17 at 21:00 Hydralazine HCl (Apresoline) 10 mg Q6H PRN IV SBP>160; Start 01/06/17 at 16:00 Acetaminophen 650 mg 650 mg Q6H PRN PO PAIN AND OR ELEVATED TEMP; Start at 22:00 Ceftriaxone Sodium (Rocephin) 50 ml @ 100 mls/hr Q24H IVPB Last administered on 01/09/17 21:08; Admin Dose 100 MLS/HR; Start 01/07/17 at 20:00 Al Hydrox/Mg Hydrox/Simethicone (Mag-Al Plus) 30 ml Q4H PRN PO GASTROINTESTINAL UPSET; Start 01/07/17 at 16:30 RAMONITA SPAULDING MD Jan 10, 2017 13:32
[2017-01-10] MEDS ORDERED: BUPIVACAINE 0.25%/EPI (SDV) 30 ML INJ ONE (13:58)
--- NOTE | 2017-01-10 14:25 | HPN ---
Date/Time of Note Date/Time of Note DATE: 01/10/17 TIME: 14:24 Interval H&P Admission Note Pt. seen H&P reviewed: No system changes Pt. seen H&P reviewed. No system changes (I attest that I have seen and examined the patient and reviewed the operation in detail, as well as its risks , benefits and alternatives of the operation). I attest that I have seen and examined the patient and reviewed in detail the operation, and its associated risks, benefits and alternative. I have answered all the patient's questions to the best of my ability and the patient wishes to proceed. Please refer to rest of electronic medical record for additional updates. VERONICA BIGGS M.D. Jan 10, 2017 14:25
[2017-01-10] MEDS ORDERED: FENTAnyl 50 MCG/ML VIAL ONE (14:37)
[2017-01-10] MEDS ORDERED: ROPIVACAINE 0.5 % 30 ML VIAL ONE (14:37)
[2017-01-10] MEDS ORDERED: PROPOFOL 20 ML ONE (14:37)
[2017-01-10] MEDS ORDERED: MIDAZOLAM 1 MG/ML 2 ML INJ ONE (14:37)
[2017-01-10] MEDS ORDERED: ROCURONIUM 50 MG INJ ONE (14:37)
[2017-01-10 14:39] LABS: ALBUMIN 4.4 g/dl (3.3-4.9)
[2017-01-10 14:40] LABS: POTASSIUM 3.6 mmol/L (3.5-5.1)
[2017-01-10 14:42] LABS: CREATININE 0.81 mg/dl (0.61-1.24)
[2017-01-10 14:43] LABS: ALBUMIN/GLOBULIN RATIO 1.29; BILIRUBIN,INDIRECT 0.5 mg/dl (0-1.1); BILIRUBIN,TOTAL 0.5 mg/dl (0.2-1.3); TOTAL PROTEIN 7.8 g/dl (6.1-8.1)
[2017-01-10] MEDS ORDERED: HYDROmorphONE (0.2 MG/ML) 10ML SYG IV PRN ×2 (15:00)
[2017-01-10] MEDS ORDERED: METOCLOPRAMIDE 10 MG INJ IV PRN (15:00)
[2017-01-10] MEDS ORDERED: MEPERIDINE 25 MG INJ IV PRN (15:00)
[2017-01-10] MEDS ORDERED: DIPHENHYDRAMINE 50 MG INJ IV PRN (15:00)
[2017-01-10] MEDS ORDERED: ONDANSETRON 4 MG INJ IV PRN (15:00)
[2017-01-10] MEDS ORDERED: morphine (1 MG/ML) 10ML SYRINGE IV PRN ×3 (15:00)
[2017-01-10] MEDS ORDERED: CEFAZOLIN 1 GM INJ ONE (15:25)
[2017-01-10] MEDS ORDERED: GLYCOPYRROLATE 0.4 MG INJ ONE (15:25)
[2017-01-10] MEDS ORDERED: ONDANSETRON 4 MG INJ ONE (15:25)
[2017-01-10] MEDS ORDERED: KETOROLAC 30 MG INJ ONE (15:25)
[2017-01-10] MEDS ORDERED: METOCLOPRAMIDE 10 MG INJ ONE (15:25)
[2017-01-10] MEDS ORDERED: DEXAMETHASONE 4 MG/ML 1 ML INJ ONE (15:25)
[2017-01-10] MEDS ORDERED: NEOSTIGMINE 3 MG/3 ML SYRINGE ONE (15:25)
[2017-01-10] MEDS ORDERED: ACETAMINOPHEN 1000MG/100ML IV 100 ML ONE (15:33)
[2017-01-10] MEDS ORDERED: DOCUSATE SODIUM 100 MG CAP PO PRN (16:00)
[2017-01-10] MEDS ORDERED: NA PHOSPHATE/BIPHOS 133 ML ENEMA PR PRN (16:00)
[2017-01-10] MEDS ORDERED: HYDROmorphONE 1 MG/ML SYG IV PRN ×2 (16:00)
[2017-01-10] MEDS ORDERED: BISACODYL 10 MG SUPP PR PRN (16:00)
[2017-01-10] MEDS ORDERED: HYDROCODONE/APAP (5/325) TAB PO PRN ×2 (16:00)
--- NOTE | 2017-01-10 16:08 | OPR ---
Date/Time of Note Date/Time of Note DATE: 01/10/17 TIME: 16:08 Operative Report Operative\Procedure Findings [facility] INPATIENT OPERATIVE NOTE PLACE OF SERVICE: [facility] DATE OF SURGERY: 01/10/2017 PREOPERATIVE DIAGNOSIS: 1. Acute cholecystitis 2. Hyperlipidemia. 3. Cholelithiasis. 4. Gastritis. 5. BMI 25.9. 6. Elevated AST and ALT and alkaline phosphatase 01/08/2017 7. Status post ERCP with balloon sweeping of common bile duct and sphincterotomy 01/09/2017 (normal anatomy and no stones) POSTOPERATIVE DIAGNOSIS: 1. Acute cholecystitis (early) 2. Hyperlipidemia. 3. Cholelithiasis. 4. Gastritis. 5. BMI 25.9. 6. Elevated AST and ALT and alkaline phosphatase 01/08/2017 7. Status post ERCP with balloon sweeping of common bile duct and sphincterotomy 01/09/2017 (normal anatomy and no stones) OPERATION: 1. Laparoscopic cholecystectomy SURGEON: Veronica Bgigs M.D. [employer]ETING: None ANESTHESIA: General endotracheal tube anesthesia ANESTHESIOLOGIST: Jonas Lott M.D. BRIEF SUMMARY: An otherwise uncomplicated laparoscopic cholecystectomy was performed with findings of possible early acute cholecystitis. Updated Clinical Summary: A very pleasant 36-year-old gentleman with comorbid issue of BMI 25.9 as well as dyslipidemia admitted through the emergency department at [facility] on 01/06/2017 for symptomatic biliary colic. Elevated transaminases. HIDA scan 01/08/17 showed no CBD or GB visualization. Status post ERCP with balloon sweeping of common bile duct and sphincterotomy 01/09/2017 ( normal anatomy and no stones). COMORBIDITIES: 1. BMI 25.9. 2. Hyperlipidemia. 3. Cholelithiasis. 4. Gastritis. BRIEF HISTORY: The patient is a very pleasant 36-year-old gentleman with above comorbidities who presented with abdominal pain of unclear etiology and ultrasound findings are concerning for possible early acute cholecystitis with thickening of gallbladder wall and possible presence of stones. Noted during this hospitalization, he had a HIDA scan on 01/08/2017 that showed no common bile duct or gallbladder visualization and subsequent to this elevation of his AST and ALT as well as alkaline phosphatase. All of these findings then led to an ERCP on 01/09/2017 that showed no common duct stones and no major anatomic abnormality. Status post sphincterotomy and no stenting. Note that there was evidence of gastritis and the patient also had reported previous resolution of his symptoms while he was being treated on proton pump inhibitors. I met with the patient and family that included his and other family members and counseled them regarding the possible options of treatment, and I suggested a laparoscopic, possible open cholecystectomy. We reviewed the operation in detail as well as the risks, benefits, alternatives, and expected outcomes of this operation. After careful consideration of all the risks, benefits, and alternatives, the patient and family appeared to understand those risks and wished to proceed with surgery. For a detailed report of my consultation with patient and family, please refer to my separate consultation note. STATEMENT OF THE INFORMED CONSENT: The patient and family appeared to understand the risks of the operation to include, but not be limited to risk of postoperative pain and scar tissue, possible infection or bleeding requiring other interventions such as opening the wound, placement of drainage catheters, or other operative interventions; possible injury to surrounding to structures including bowel, bladder, bile duct, or blood vessels, or solid organs such as liver, kidney, or pancreas requiring other interventions or procedures; possible leakage of bile from surgical clip sites, suture lines, or worse, from common bile duct injury, causing significant increase in morbidity and mortality and requiring multiple interventions including but not limited to, placement of drainage catheters, imaging studies, as well as operative interventions; possible other source of sepsis such as urinary tract infections or pneumonias, or other sources of potentially life threatening problems such as deep venous thrombus formation causing pulmonary embolism, myocardial arrhythmias and infarctions, and even . After careful consideration of all their options, the patient and family appeared to understand and wished to proceed with surgery. DESCRIPTION OF PROCEDURE: After obtaining informed consent, the patient was brought into the operating room and was placed in a normal supine position, where successful general endotracheal tube anesthesia was performed. The patient 's abdominal skin was prepped and draped, from the nipple line down to the level of the groins, in the usual sterile fashion. Intravenous access was already in place, and appropriately chosen and dosed prophylactic intravenous antimicrobials were administered. We then called a surgical time-out where patient's identification, date of , nature of the operation, allergies, presence of intravenous antimicrobials, presence of needed equipment, and any other concerns were reviewed and agreed upon by all members of the operating room team. We then started the operation by placing a 5-mm skin incision in the right- upper quadrant, subcostal midclavicular line, and introduced a 5-mm [employer] trocar into the peritoneal space, visualizing all the layers of the abdominal wall as we entered. Note that there was no indication of any injury to underlying structures once we entered the peritoneum. We insufflated the abdominal cavity to a maximum pressure of 15 mmHg, again, confirmed lack of any injury to underlying structures prior to visualizing the rest of the abdominal cavity. We found the fundus of the gallbladder to be visible. There was no evidence of malignancy. No evidence of calcifications or significant issues with adhesions, or other abnormalities. The liver appeared to be healthy. With this information, we went a head and placed the other trocars under direct visualization, after injecting their sites with 0.25% Marcaine with epinephrine , placing a 5-mm trocar in the umbilical midline area, a 5-mm trocar in the right anterior axillary line, and a 12-mm trocar in the midline subxiphoid region. With our instruments in place, we had excellent visualization and access to the right-upper quadrant. We then we grasped the fundus of the gallbladder and pointed up towards the right-upper quadrant. We were then able to grasp the infundibulum and pull it out in order to expose the critical triangle of Calot. We then placed our usual serosal cuts along the long axis of the gallbladder 1 cm away from its attachment to the liver bed up towards the fundus, and then joined these 2 lines under the infundibulum, taking care not to deliver any energy to underlying structures. Because of mild inflammation in the triangle of Calot, I decided to maximize the degree of safety of the operation by taking the gallbladder top-down which was achieved using cautery. We then performed meticulous dissection to identify and circumferentially isolate both the cystic duct and cystic artery, prior to transecting them between 2 surgical Endoclips, proximally and one distally on the cystic artery and 3 surgical endoclips proximally and one distally on the cystic duct, transecting both using cold scissors, and only after making sure that these were the only 2 structures going into the gallbladder. We then shaved the gallbladder off the gallbladder bed using cautery, and then delivered it out inside of an EndoCatch bag through the 12-mm trocar site without enlarging the fascia or contaminating the wound. The gallbladder was sent to Pathology for evaluation. Note that we did not find significant stones within the gallbladder and the gallbladder itself appeared to be fairly normal with some inflammation of the area of the cystic duct. Returning to the abdominal cavity, we ensured that there was adequate hemostasis and bile-stasis prior to removal of all of or equipment, including the pneumoperitoneum, and then reapproximating the 12-mm trocar site with one [id number] 0 Vicryl suture, followed by washing the wounds with copious amounts of normal saline, and then reapproximating the skin using interrupted 4- 0 Monocryl sutures. Light dressing was then applied. At the end of the operation, both the sponge count and needle count were reportedly correct x2. The patient tolerated the procedure without any reported complications. ESTIMATED BLOOD LOSS: 5 mL BLOOD OR BLOOD PRODUCT TRANSFUSIONS: None to my knowledge. SPECIMENS: 1. Gallbladder COMPLICATIONS: None. DISPOSITION: Recovery area. Disclaimer: Inadvertent spelling and grammatical errors are likely due to EHR/ dictation software use and do not reflect on the quality of delivered patient care. VERONICA BIGGS M.D. Jan 10, 2017 16:08
[2017-01-10] MEDS: HYDROmorphONE (0.2 MG/ML) 10ML SYG IV PRN ×3 (16:10→16:37)
[2017-01-10] MEDS: D5W-0.45 NACL + KCL 20 MEQ 1,000 ML IV SCH (17:06)
[2017-01-11] MEDS: D5W-0.45 NACL + KCL 20 MEQ 1,000 ML IV SCH ×2 (02:21→11:12)
[2017-01-11] MEDS ORDERED: PANTOPRAZOLE (EC) 40 MG TAB PO SCH (06:00)
[2017-01-11 06:17] LABS: ADD SCAN DIFF NO
[2017-01-11 06:26] LABS: BASOPHILS % 0.4 % (0.0-2.0); EOSINOPHILS # 0.1 10^3/ul (0.0-0.5); EOSINOPHILS % 1.1 % (0.0-7.0); HEMATOCRIT 38.6 % (42.0-52.0); LYMPHOCYTES # 2.2 10^3/ul (0.8-2.9); LYMPHOCYTES % 23.2 % (15.0-51.0); MEAN CORPUSCULAR HEMOGLOBIN 31.3 pg (29.0-33.0); MEAN CORPUSCULAR HGB CONC 33.7 g/dl (32.0-37.0); MEAN CORPUSCULAR VOLUME 92.8 fl (82.0-101.0); MEAN PLATELET VOLUME 11.7 fl (7.4-10.4); MONOCYTE # 0.9 10^3/ul (0.3-0.9); MONOCYTES % 9.4 % (0.0-11.0); NEUTROPHIL # 6.2 10^3/ul (1.6-7.5); NEUTROPHILS % 65.6 % (39.0-77.0); PLATELET COUNT 239 10^3/UL (140-415); RED BLOOD COUNT 4.16 10^6/ul (4.70-6.10); RED CELL DISTRIBUTION WIDTH 13.1 % (11.5-14.5); WHITE BLOOD COUNT 9.4 10^3/ul (4.8-10.8)
[2017-01-11 06:29] LABS: ALBUMIN 3.8 g/dl (3.3-4.9)
[2017-01-11 06:30] LABS: POTASSIUM 4.2 mmol/L (3.5-5.1)
[2017-01-11 06:32] LABS: BILIRUBIN,INDIRECT 0.4 mg/dl (0-1.1); BILIRUBIN,TOTAL 0.4 mg/dl (0.2-1.3); CREATININE 0.77 mg/dl (0.61-1.24)
[2017-01-11 06:33] LABS: ALBUMIN/GLOBULIN RATIO 1.35; CALCIUM 8.8 mg/dl (8.4-10.2); INR 1.09; PROTIME 14.1 Sec (12.2-14.2); PT RATIO 1.1; TOTAL PROTEIN 6.6 g/dl (6.1-8.1)
[2017-01-11 06:34] LABS: PARTIAL THROMBOPLASTIN TIME 30.4 Sec (25.0-35.0)
[2017-01-11 06:37] LABS: MAGNESIUM 1.7 mg/dl (1.7-2.5); PHOSPHORUS 3.9 mg/dl (2.5-4.9)
[2017-01-11 07:46] VITALS: BP 121/79; RESP 19
[2017-01-11] MEDS ORDERED: ENOXAPARIN 40 MG/0.4 ML SYG SC SCH (09:00)
--- NOTE | 2017-01-11 10:12 | CONS ---
Date/Time of Note Date/Time of Note DATE: 01/11/17 TIME: 10:12 Assessment/Plan Assessment/Plan Chief Complaint/Hosp Course Mr.Ramin Jimenez is a 36-year-old male that presents with worsening abdominal pain, nausea, vomiting for last 2 weeks. Patient states prior to this episode he has been experiencing chronic abdominal pain with intermittent nausea and vomiting for several years. Patient states pain is worse after eating. Patient reports burning epigastric pain after eating and he uses over-the- counter Zantac for relief of symptoms. Patient denies fever, chills, travel outside the [place], sick contacts, alcohol use. Patient does have a past medical history of dyslipidemia that is treated with fenofibrate. Problems: Additional Assessment/Plan Abdominal pain/nausea/vomiting Evaluate GI bleed versus PUD Monitor H&H every 8 hours, transfuse 2 units for hemoglobin less than 7.5 Continue PPI twice daily Status post ERCP: Gastritis. Normal cholangiogram. Nausea and pain control Continue PPI twice daily GERD Continue PPI twice daily Stool H pylori positive Transaminitis Likely secondary to cholecystitis Monitor LFTs Acute hepatitis panel, hep A, B, C negative Cholecystitis Surgery managing Cholecystectomy today Rule out choledocholithiasis, abdominal ultrasound negative for CBD dilation Lipase within normal limits High cholesterol Management per Primary Continue home medication Further recommendations depend on clinical course Patient seen in collaboration with Dr. Carlisle Consultation Date/Type/Reason Admit Date/Time Jan 06, 2017 at 14:23 Type of Consultation: Gastroenterology 24 HR Interval Summary Free Text/Dictation Status post cholecystectomy Tolerating diet Advised PPI once to twice daily daily post discharge Exam/Review of Systems Vital Signs Vitals Vital Signs Date Time Temp Pulse Resp B/P Pulse Ox O2 Delivery O2 Flow Rate FiO2 01/11/17 07:46 98.1 57 19 121/79 99 01/10/17 20:00 Room Air Intake and Output 01/10/17 01/10/17 01/11/17 15:00 23:00 07:00 Intake Total 2150 ml 220 ml 2000 ml Output Total 5 ml Balance 2150 ml 215 ml 2000 ml Exam Constitutional: alert, oriented, well developed Psych: nl mood/affect Head: normocephalic Eyes: EOMI, nl conjunctiva, nl lids ENMT: nl external ears & nose, nl lips & teeth, nl nasal mucosa & septum Respiratory: clear to auscultation, normal air movement Cardiovascular: regular rate and rhythm Gastrointestinal: soft, incisional abdominal tenderness Musculoskeletal: nl extremities to inspection Neurological: COMPUTER ART INSTRUCTOR II-XII intact Results Result Diagram: 01/11/17 0509 01/11/17 0509 Results 24 hrs Laboratory Tests Test 01/10/17 14:05 01/11/17 05:09 Sodium Level 140 139 Potassium Level 3.6 4.2 Chloride Level 105 105 Carbon Dioxide Level 24 26 Anion Gap 15 12 Blood Urea Nitrogen 9 7 Creatinine 0.81 0.77 Glucose Level 90 106 Calcium Level 9.0 8.8 Total Bilirubin 0.5 0.4 Direct Bilirubin 0.00 0.00 Indirect Bilirubin 0.5 0.4 Aspartate Amino Transf (AST/SGOT) 111 H 84 H Alanine Aminotransferase (ALT/SGPT) 444 H 335 H Alkaline Phosphatase 149 H 117 Total Protein 7.8 # 6.6 # Albumin 4.4 3.8 Globulin 3.40 H 2.80 Albumin/Globulin Ratio 1.29 1.35 White Blood Count 9.4 # Red Blood Count 4.16 L Hemoglobin 13.0 L Hematocrit 38.6 L Mean Corpuscular Volume 92.8 Mean Corpuscular Hemoglobin 31.3 Mean Corpuscular Hemoglobin Concent 33.7 Red Cell Distribution Width 13.1 Platelet Count 239 Mean Platelet Volume 11.7 H Neutrophils % 65.6 Lymphocytes % 23.2 Monocytes % 9.4 Eosinophils % 1.1 Basophils % 0.4 Nucleated Red Blood Cells % 0.0 Neutrophils # 6.2 Lymphocytes # 2.2 Monocytes # 0.9 Eosinophils # 0.1 Basophils # 0.0 Nucleated Red Blood Cells # 0.0 Prothrombin Time 14.1 Prothrombin Time Ratio 1.1 INR International Normalized Ratio 1.09 Activated Partial Thromboplast Time 30.4 Phosphorus Level 3.9 Magnesium Level 1.7 Medications Medications Current Medications Ondansetron HCl (Zofran Inj) 4 mg Q6H PRN IV NAUSEA AND/OR VOMITING Last administered on 01/06/17 18:40; Admin Dose 4 MG; Start 01/06/17 at 16:00 Ibuprofen (Motrin) 600 mg Q6H PRN PO PAIN LEVEL 1-3 Last administered on 21:15; Admin Dose 600 MG; Start 01/06/17 at 16:00 Magnesium Hydroxide (Milk Of Mag) 30 ml DAILY PRN PO CONSTIPATION; Start at 16:00 Bisacodyl (Dulcolax) 5 mg DAILY PRN PO CONSTIPATION; Start 01/06/17 at 16:00 Hydralazine HCl (Apresoline) 10 mg Q6H PRN IV SBP>160; Start 01/06/17 at 16:00 Acetaminophen (Tylenol Tab) 650 mg Q6H PRN PO PAIN AND OR ELEVATED TEMP; Start 01/06/17 at 22:00 Al Hydrox/Mg Hydrox/ Simethicone 30 ml 30 ml Q4H PRN PO GASTROINTESTINAL UPSET ; Start 01/07/17 at 16:30 Potassium Chloride/Dextrose/ Sod Cl (D5-1/2ns + KCl 20 Meq) 1,000 ml @ 100 mls/ hr Q10H IV Last administered on 01/11/17 02:21; Admin Dose 100 MLS/HR; Start 01/10/17 at 15:50 Acetaminophen/ Hydrocodone Bitart ([place] (5/325)) 1 tab Q4H PRN PO PAIN LEVEL 4 -7; Start 01/10/17 at 16:00 Acetaminophen/ Hydrocodone Bitart ([place] (5/325)) 2 tab Q4H PRN PO PAIN LEVEL 7 -10 Last administered on 01/11/17 08:37; Admin Dose 2 TAB; Start 01/10/17 at 16 :00 Hydromorphone HCl (Dilaudid) 0.5 mg Q2 PRN IV PAIN; Start 01/10/17 at 16:00 Hydromorphone HCl (Dilaudid) 1 mg Q2 PRN IV PAIN Last administered on 05:35; Admin Dose 1 MG; Start 01/10/17 at 16:00 Docusate Sodium (Colace) 100 mg BID PRN PO CONSTIPATION; Start 01/10/17 at 16: 00 Bisacodyl (Dulcolax Supp) 10 mg BID PRN [place] CONSTIPATION; Start 01/10/17 at 16: 00 Sodium Biphosphate/ Sodium Phosphate (Fleet Enema) 133 ml BID PRN [place] CONSTIPATION; Start 01/10/17 at 16:00 Enoxaparin Sodium (Lovenox) 40 mg DAILY SC Last administered on 01/11/17 09:01 ; Admin Dose 40 MG; Start 3/26/17 at 09:00 Pantoprazole (Protonix Tab) 40 mg DAILY@06 PO Last administered on 01/11/17t 05 :35; Admin Dose 40 MG; Start 01/11/17 at 06:00 ROSARIO MACIAS Jan 11, 2017 10:12
[2017-01-11] MEDS ORDERED: BISACODYL (EC) 5 MG TAB PO ONE (11:00)
--- NOTE | 2017-01-11 11:35 | PN ---
Date/Time of Note Date/Time of Note DATE: 01/11/17 TIME: 11:33 Assessment/Plan VTE Prophylaxis VTE Prophylaxis Intervention: SCD's Lines/Catheters IV C[facility]ter Type (from [facility] Peripheral IV Urinary Cath still in place: No Assessment/Plan Assessment/Plan 1. Symptomatic cholelithiasis. s/p general surgery consult, s/p ERCP by GI, now s/p Laproscopic cholecystectomy POD # 1 2. Dyslipidemia. 3. Transaminitis acute 4. Tobacco use. counselled for smoking cessation , pain control, SCD for DVT prophylaxis MRI showed minimally dilated CBD, no evidence of cholecystitis s/p ERCP- now s/p Lap cholecystectomy advance diet to regular diet Subjective 24 Hr Interval Summary Free Text/Dictation s/p laproscopic cholecystectomy, BP stable, afebrile, , tolerating po diet Exam/Review of Systems Vital Signs Vitals Vital Signs Date Time Temp Pulse Resp B/P Pulse Ox O2 Delivery O2 Flow Rate FiO2 01/11/17 07:46 98.1 57 19 121/79 99 01/10/17 20:00 Room Air Intake and Output 01/10/17 01/10/17 01/11/17 15:00 23:00 07:00 Intake Total 2150 ml 220 ml 2000 ml Output Total 5 ml Balance 2150 ml 215 ml 2000 ml Exam HEENT: Head normocephalic and atraumatic. Eyes: Anicteric sclerae. Conjunctivae clear. ENT: Nasal septum is midline. Oral mucosa is dry. NECK: Supple. No JVD noticed. RESPIRATORY: Bilaterally clear to auscultation. No adventitious breath sounds heard. No use of accessory muscles of respiration. CARDIAC: Regular rate and rhythm. No murmurs heard. GASTROINTESTINAL: Abdomen soft, nontender. Bowel sounds hypoactive in all 4 quadrants. GENITOURINARY: Deferred. EXTREMITIES: No cyanosis, no clubbing, no edema. Peripheral pulses are palpable. NEUROLOGIC: The patient is awake, alert and oriented. Cranial nerves are grossly intact. Results Result Diagram: 01/11/17 0509 01/11/17 0509 Results 24 hrs Laboratory Tests Test 01/10/17 14:05 01/11/17 05:09 Sodium Level 140 139 Potassium Level 3.6 4.2 Chloride Level 105 105 Carbon Dioxide Level 24 26 Anion Gap 15 12 Blood Urea Nitrogen 9 7 Creatinine 0.81 0.77 Glucose Level 90 106 Calcium Level 9.0 8.8 Total Bilirubin 0.5 0.4 Direct Bilirubin 0.00 0.00 Indirect Bilirubin 0.5 0.4 Aspartate Amino Transf (AST/SGOT) 111 H 84 H Alanine Aminotransferase (ALT/SGPT) 444 H 335 H Alkaline Phosphatase 149 H 117 Total Protein 7.8 # 6.6 # Albumin 4.4 3.8 Globulin 3.40 H 2.80 Albumin/Globulin Ratio 1.29 1.35 White Blood Count 9.4 # Red Blood Count 4.16 L Hemoglobin 13.0 L Hematocrit 38.6 L Mean Corpuscular Volume 92.8 Mean Corpuscular Hemoglobin 31.3 Mean Corpuscular Hemoglobin Concent 33.7 Red Cell Distribution Width 13.1 Platelet Count 239 Mean Platelet Volume 11.7 H Neutrophils % 65.6 Lymphocytes % 23.2 Monocytes % 9.4 Eosinophils % 1.1 Basophils % 0.4 Nucleated Red Blood Cells % 0.0 Neutrophils # 6.2 Lymphocytes # 2.2 Monocytes # 0.9 Eosinophils # 0.1 Basophils # 0.0 Nucleated Red Blood Cells # 0.0 Prothrombin Time 14.1 Prothrombin Time Ratio 1.1 INR International Normalized Ratio 1.09 Activated Partial Thromboplast Time 30.4 Phosphorus Level 3.9 Magnesium Level 1.7 Medications Medications Current Medications Ondansetron HCl (Zofran Inj) 4 mg Q6H PRN IV NAUSEA AND/OR VOMITING Last administered on 01/06/17 18:40; Admin Dose 4 MG; Start 01/06/17 at 16:00 Ibuprofen (Motrin) 600 mg Q6H PRN PO PAIN LEVEL 1-3 Last administered on 21:15; Admin Dose 600 MG; Start 01/06/17 at 16:00 Magnesium Hydroxide (Milk Of Mag) 30 ml DAILY PRN PO CONSTIPATION; Start at 16:00 Bisacodyl (Dulcolax) 5 mg DAILY PRN PO CONSTIPATION; Start 01/06/17 at 16:00 Hydralazine HCl (Apresoline) 10 mg Q6H PRN IV SBP>160; Start 01/06/17 at 16:00 Acetaminophen (Tylenol Tab) 650 mg Q6H PRN PO PAIN AND OR ELEVATED TEMP; Start 01/06/17 at 22:00 Al Hydrox/Mg Hydrox/ Simethicone 30 ml 30 ml Q4H PRN PO GASTROINTESTINAL UPSET ; Start 01/07/17 at 16:30 Potassium Chloride/Dextrose/ Sod Cl (D5-1/2ns + KCl 20 Meq) 1,000 ml @ 100 mls/ hr Q10H IV Last administered on 01/11/17 02:21; Admin Dose 100 MLS/HR; Start 01/10/17 at 15:50 Acetaminophen/ Hydrocodone Bitart ([place] (5/325)) 1 tab Q4H PRN PO PAIN LEVEL 4 -7; Start 01/10/17 at 16:00 Acetaminophen/ Hydrocodone Bitart ([place] (5/325)) 2 tab Q4H PRN PO PAIN LEVEL 7 -10 Last administered on 01/11/17 08:37; Admin Dose 2 TAB; Start 01/10/17 at 16 :00 Hydromorphone HCl (Dilaudid) 0.5 mg Q2 PRN IV PAIN; Start 01/10/17 at 16:00 Hydromorphone HCl (Dilaudid) 1 mg Q2 PRN IV PAIN Last administered on 05:35; Admin Dose 1 MG; Start 01/10/17 at 16:00 Docusate Sodium (Colace) 100 mg BID PRN PO CONSTIPATION; Start 01/10/17 at 16: 00 Bisacodyl (Dulcolax Supp) 10 mg BID PRN [place] CONSTIPATION; Start 01/10/17 at 16: 00 Sodium Biphosphate/ Sodium Phosphate (Fleet Enema) 133 ml BID PRN [place] CONSTIPATION; Start 01/10/17 at 16:00 Enoxaparin Sodium (Lovenox) 40 mg DAILY SC Last administered on 01/11/17 09:01 ; Admin Dose 40 MG; Start 01/11/17 at 09:00 Pantoprazole (Protonix Tab) 40 mg DAILY@06 PO Last administered on 01/11/17 05 :35; Admin Dose 40 MG; Start 01/11/17 at 06:00 RAMONITA SPAULDING MD Jan 11, 2017 11:35
--- NOTE | 2017-01-11 11:36 | PDOCDIS ---
Discharge Instructions CONDITION Patient Condition: Good HOME CARE INSTRUCTIONS: Special Diet: soft consistency regular diet ACTIVITY: Activity Restrictions: Slowly Increase Activity Rest between Activity Avoid heavy lifting Avoid Heavy Housework FOLLOW UP/APPOINTMENTS Appointments Follow up with his own PMD through O insurance in 1-2 week. Follow up with Dr.Kambiz hernandez in 1-2 week after discharge for post surgery follow up( he will need referral from his PMD to see General surgery as outpatient) RAMONITA SPAULDING MD Jan 11, 2017 11:36
[2017-01-11] MEDS ORDERED: METO10TA92 PO (11:52)
[2017-01-11] MEDS ORDERED: ESOM20CA PO (11:52)
[2017-01-11] MEDS ORDERED: HYDR-3498 PO (11:52)
--- NOTE | 2017-01-11 22:13 | DS ---
DATE OF ADMISSION: 01/06/2017 DATE OF DISCHARGE: 01/11/2017 FINAL DISCHARGE DIAGNOSES: 1. Symptomatic cholelithiasis, status post laparoscopic cholecystectomy. 2. Acute biliary colic, status post ERCP, negative for any choledocholithiasis. 3. History of dyslipidemia. 4. Acute transaminitis secondary to symptomatic cholelithiasis. 5. History of smoking. CONSULTATIONS DONE DURING THIS HOSPITALIZATION: 1. GI consult, Dr. Carlisle. 2. General surgery consult, Dr. Teo Maurice. PROCEDURES PERFORMED DURING THIS HOSPITALIZATION: 1. The patient underwent ERCP during this hospitalization. 2. The patient underwent laparoscopic cholecystectomy done by Dr. Teo Maurice. HOSPITAL COURSE: This is a 36-year-old male with a past medical history of dyslipidemia, history of previous smoking who presented with a complaint of right upper quadrant abdominal pain associated w ith nausea and vomiting. The patient was admitted for symptomatic gallstones. He was treated with n.p.o., IV fluids, and the pain is controlled. He was seen by GI, Dr. Carlisle, who recommended the p atient to have an ERCP. He underwent ERCP due to his elevated liver enzymes and also secondary to d ilated common bile duct. The patient's ERCP was negative for any significant findings. Subsequentl y, had a general surgery consultation done by Dr. Teo Maurice and the patient underwent laparoscop ic cholecystectomy that he tolerated very well. After getting good postoperative care and the pain control, he was cleared for discharge by Dr. Maurice and he is being discharged to home. DISPOSITION: To home. DISCHARGE CONDITION: Stable and improved compared to admission. DISCHARGE ACTIVITIES: As tolerated, slowly resume to the normal baseline activity. DISCHARGE DIET: Soft consistency regular diet. DISCHARGE MEDICATIONS: As per medical reconciliation. 1. He is given prescription of Nexium. 2. Reglan. 2. [place] p.r.n. severe pain. DISCHARGE FOLLOWUP AND INSTRUCTIONS: 1. The patient is to follow up with his own primary care doctor through his HMO insurance 1 to 2 we eks after discharge. 2. The patient is to follow up with general surgery, Dr. Teo Maurice, as outpatient in 1 to 2 wee ks after discharge. 3. He has been explained about the discharge plan and followup instructions. He understood and aravind balized understanding. Dictated By: RAMONITA SPAULDING MD KP/NTS Conf#: [id number] DID#: [id number] CC: RC SAMUEL MD;*EndCC*
--- NOTE | 2017-01-11 22:26 | PN ---
Date/Time of Note Date/Time of Note DATE: 01/11/17 TIME: 10:24 Assessment/Plan Lines/Catheters IV Catheter Type (from Nrs): Peripheral IV Richard in Place (from Nrs): No Assessment/Plan Assessment/Plan [facility] Progress Note Date of Service: 01/11/17 Today's Impression & Plan: Overall stable and doing well post op from lap torsten. With above assessment, I've recommended the following for today: 1. D/c home 2. Please include the following in patient's d/c instructions: Please call [phone] if any of fever, nausea, vomiting, discharge from wound , wound redness, increase or sudden pain, blood in stool or vomit, or any other unusual signs or symptoms. Also, please call the same number in a few days to schedule an appointment for your follow up visit. Patient may remove dressings tomorrow. Showers OK starting tomorrow. No swimming , hot tub or bath for 2 weeks. No lifting more than 25 lbs for 8 weeks. Thank you again for your great care of this very pleasant patient and wonderful family. If there are any questions, please feel free to call me at [phone]. TOTAL VISIT TIME: 20 minutes of which more than half was spent in [id number] discussion with the patient, possibly including family, as well as coordination of care between multiple physicians and providers. Disclaimer: Inadvertent spelling or grammatical errors are likely due to EHR/ dictation software use and do not reflect on the overall quality of patient care. Updated Clinical Summary: A very pleasant 36-year-old gentleman with comorbid issue of BMI 25.9 as well as dyslipidemia admitted through the emergency department at [facility] on 01/06/2017 for symptomatic biliary colic. Elevated transaminases. HIDA scan 01/08/17 showed no CBD or GB visualization. S/p ERCP with sphincterotomy (no stent) 01/09/17 (normal duct and no sig stones). S/p lap torsten 01/10/17 (mildly inflamed GB and no major large gallstones). COMORBIDITIES: 1. BMI 25.9. 2. Hyperlipidemia. 3. Cholelithiasis. 4. Gastritis. Subjective: No major events or complaints overnight; no major abd pain and under control with medications; no n/v/d; no sob or cp; + flatus; + BM; + activity Objective: Vitals: See below Exam: GENERAL: On exam, the patient was sitting up in his bed and appeared to be comfortable and in no acute distress. ABDOMEN: Soft, nontender and nondistended. There are no peritoneal signs or guarding. Incisions c/d/i w/o obvious underlying e/e/d/h. SKIN: Skin appears to be pink and feels warm to touch. NEUROLOGIC: Patient is awake, alert, and follows commands appropriately. Exam/Review of Systems Vital Signs Vitals Vital Signs Date Time Temp Pulse Resp B/P Pulse Ox O2 Delivery O2 Flow Rate FiO2 01/11/17 07:46 98.1 57 19 121/79 99 01/10/17 20:00 Room Air Intake and Output 01/10/17 01/10/17 01/11/17 15:00 23:00 07:00 Intake Total 2150 ml 220 ml 2000 ml Output Total 5 ml Balance 2150 ml 215 ml 2000 ml Results Result Diagram: 01/11/17 0509 01/11/17 0509 VERONICA BIGGS M.D. Jan 11, 2017 22:26
--- NOTE | 2017-01-13 03:58 | GILP ---
DATE OF PROCEDURE: PROCEDURE: Endoscopic retrograde cholangiopancreatography. BRIEF HISTORY AND INDICATIONS: The patient is being evaluated for abnormal liver function tests. PREMEDICATION: General anesthesia by anesthesiologist. INSTRUMENT USED: Olympus side-viewing panendoscope. SURGEON: Shameka Carlisle MD. TECHNIQUE: After informed consent, with the patient/relatives understanding the procedure, its indic ations, potential risks and complications, including but not limited to: allergic reaction, bleeding , perforation or infection, and after all pertinent questions were answered to the patients satisfac tion, the patient/relatives signed witnessed informed consent. Following this, premedication was administered slowly IV push under careful cardiovascular and respi ratory monitoring with pulse oximetry, automatic blood pressure and monitor tech. Once the sedative effect was achieved the patient was place in the prone position in the radiology s pecial procedures suite; the side viewing panendoscope was introduced and advanced under visual cont rol. Careful examination of the upper gastrointestinal tract, both on insertion as well as withdrawal of the instrument disclosed the following findings: ESOPHAGUS: The mucosa of the entire esophagus appears within normal limits. There is no evidence of esophagitis, varices, neoplasm or stricture. No Hiatal Hernia identified. STOMACH: Upon entrance to the stomach, air was insufflated, the gastric varghese distended normally. There is erythema and edema of the mucosa of a moderate degree. PYLORUS: The pylorus appears patent and within normal limits, with no evidence of gastric outlet ob struction. DUODENUM: The duodenal mucosa was carefully examined in the duodenal bulb as well as the second por tion of the duodenum and appears unremarkable with no evidence of duodenitis, ulcer or neoplasm. AMPULLA OF VATER: The ampulla of Vater was identified and carefully examined appearing within inna l limits. CANNULATION: At this point cannulation was accomplished with the following fluoroscopic findings: PANCREATOGRAM: Not obtained. CHOLANGIOGRAM: Entirely within normal limits. IMPRESSION: 1. Moderate gastritis, rule out Helicobacter pylori infection. Serology will be requested. 2. Normal cholangiogram. PLAN: Review. If hepatitis serology is negative, proceed with laparoscopic cholecystectomy. Dictated By: SHAMEKA CARLISLE MS/ALBERTO Conf#: [id number] DID#: [id number]
== END 2017-01-11 15:55 | disposition home or self-care (01) | DRG 419 ==
LOC: FTE 10:55 → MS2 14:23
PROVIDERS: ADMIT Family Medicine; ATTEND Family Medicine
PROC: 0FJB8ZZ Inspection of Hepatobiliary Duct, Via Natural or Artificial Opening Endoscopic (ICD-10-PCS; 2017-01-09)
PROC: BF101ZZ Fluoroscopy of Bile Ducts using Low Osmolar Contrast (ICD-10-PCS; 2017-01-09)
PROC: 0FT44ZZ Resection of Gallbladder, Percutaneous Endoscopic Approach (ICD-10-PCS; principal; 2017-01-10 14:30)
DX: K80.00 Calculus of gallbladder with acute cholecystitis without obstruction (principal); E78.00 Pure hypercholesterolemia, unspecified; K80.80 Other cholelithiasis without obstruction; E78.5 Hyperlipidemia, unspecified; F17.200 Nicotine dependence, unspecified, uncomplicated; R74.0 Nonspecific elevation of levels of transaminase and lactic acid dehydrogenase [LDH]; K29.70 Gastritis, unspecified, without bleeding
CPT/HCPCS: 74181; 74330; 76705; 78226; 80053; 80061; 80307; 81001; 81003; 82652; 83036; 83690; 83735; 84100; 84439; 84443; 84450; 84460; 85025; 85610; 85730; 86704; 86709; 86803; 87340; 88304; 90686; A9537; J0131; J0330; J0690; J0696; J1100; J1170; J1650; J1885; J2250; J2270; J2405; J2710; J2765; J2795; J3010; J3480; J7042; Q9967

== ENCOUNTER 2017-02-02 10:47 | Outpatient (CLI) | payer OTHER ==
[~2017-02-02] VITALS: Ht 182.9 cm; Wt 86.4 kg
[~2017-02-02 10:47] MED LIST: ESOM20CA PO; HYDR-3498 PO; METO10TA92 PO
[2017-02-02 10:59] VITALS: BP 128/79; PULSE 76; RESP 16; Ht 182.9 cm; Wt 86.4 kg
--- NOTE | 2017-02-02 15:38 | PN ---
Date/Time of Note Date/Time of Note DATE: 02/02/17 TIME: 15:34 Assessment/Plan Assessment/Plan Assessment/Plan [facility] Progress Note Date of Service: 02/02/17 Today's Impression & Plan: Overall stable and doing well post op from lap torsten. No major issues or wound problems. Reports no more abdominal pain since the operation. With above assessment, I've recommended the following for today: 1. F/u with PCP 2. F/u with us prn Thank you again for your great care of this very pleasant patient and wonderful family. If there are any questions, please feel free to call me at [phone]. TOTAL VISIT TIME: 20 minutes of which more than half was spent in [id number] discussion with the patient, possibly including family, as well as coordination of care between multiple physicians and providers. Disclaimer: Inadvertent spelling or grammatical errors are likely due to EHR/ dictation software use and do not reflect on the overall quality of patient care. Updated Clinical Summary: A very pleasant 36-year-old gentleman with comorbid issue of BMI 25.9 as well as dyslipidemia admitted through the emergency department at [facility] on 01/06/2017 for symptomatic biliary colic. Elevated transaminases. HIDA scan 01/08/17 showed no CBD or GB visualization. S/p ERCP with sphincterotomy (no stent) 01/09/17 (normal duct and no sig stones). S/p lap torsten 01/10/17 (mildly inflamed GB and no major large gallstones). D/c home . COMORBIDITIES: 1. BMI 25.9. 2. Hyperlipidemia. 3. Cholelithiasis. 4. Gastritis. 5. S/p lap torsten 01/10/17 (mildly inflamed GB and no major large gallstones). Subjective: No major events or complaints since discharge; no major abd pain and no longer on any pain medications; no n/v/d; no sob or cp; + flatus; + BM; + activity Objective: Vitals: See below Exam: GENERAL: On exam, the patient was sitting up in a chair and appeared to be comfortable and in no acute distress. ABDOMEN: Soft, nontender and nondistended. There are no peritoneal signs or guarding. Incisions c/d/i w/o obvious underlying e/e/d/h. SKIN: Skin appears to be pink and feels warm to touch. NEUROLOGIC: Patient is awake, alert, and follows commands appropriately. Exam/Review of Systems Vital Signs Vitals Vital Signs Date Time Temp Pulse Resp B/P Pulse Ox O2 Delivery O2 Flow Rate FiO2 02/02/17 10:59 97.9 76 16 128/79 99 Room Air VERONICA BIGGS M.D. Feb 02, 2017 15:38
== END 2017-02-02 16:15 | disposition home or self-care (01) ==
LOC: HPC 10:47
PROVIDERS: ATTEND Transplant Surgery
DX: Z09 Encounter for follow-up examination after completed treatment for conditions other than malignant neoplasm (principal); E78.5 Hyperlipidemia, unspecified; K29.70 Gastritis, unspecified, without bleeding; Z90.49 Acquired absence of other specified parts of digestive tract
CPT/HCPCS: G0463